=== PATIENT | male | born 1960 | race Caucasian/White ===

== ENCOUNTER → 2018-03-18 08:03 | Outpatient (CLI) | payer OTHER, SELFPAY ==
[2018-03-18 12:03] LABS: Cholesterol 174 mg/dL (200); Glucose 103 mg/dL (74-106); High Density Lipoprotein 38 mg/dL; Triglycerides 125 mg/dL; Very Low Density Lipoprotein 25 mg/dL (5-40)
== END ==
PROVIDERS: Family Provider Family Medicine; PCP Family Medicine; Visit Provider Family Medicine
DX: Z13.220 Encounter for screening for lipoid disorders (principal); Z13.1 Encounter for screening for diabetes mellitus
CPT/HCPCS: 36415; 80061; 82947

== ENCOUNTER → 2019-03-06 16:21 | Outpatient (CLI) | payer OTHER, SELFPAY ==
--- NOTE | 2019-03-06 15:10 | LES_PTH ---
PATIENT: SUNITA CERDA LOC: [facility] U#:[id number] AGE/SX: 64/M ROOM: RE03/06/[address]: Dr. Malachi Barrios MD : 1960 BED: DIS: SPEC #: [id number] RECD: 03/06/19 16:19 STATUS: HAIDER PRIMITIVO #: [id number] PHIL: 03/06/19 15:[address]: Malachi Barrios DEPT: SURGICAL PATHOLOGY RECD BY: Kin Chew ENTERED: 03/09/19 10:32 SP TYPE: Lesion OTHR DR: Dr. Simone Guallpa MD Tissues: A - Skin of forearm, NOS B - Skin of forearm, NOS C - Skin of forearm, NOS D - Skin of forearm, NOS Procedures: Surgery Specimen Level IV HEADER OPERATION: Excision of bilateral forearm subcutaneous lesions PRE-OP DIAGNOSIS: Lesion of subcutaneous tissue TISSUE SUBMITTED: A - Left proximal forearm lesion, B - Left distal forearm lesion, C - Right posterior forearm lesion, D - Right anterior forearm lesion MICROSCOPIC DIAGNOSIS A. Soft tissue lesion of left proximal forearm lesion, excision: Mature adipose tissue consistent with angiolipoma. B. Soft tissue lesion of left distal forearm, excision: Mature adipose tissue consistent with angiolipoma. C. Soft tissue lesion of right posterior forearm, excision: Mature adipose tissue consistent with angiolipoma. D. Soft tissue lesion of right anterior forearm, excision: Mature adipose tissue consistent with angiolipoma. AM:lucero 03/10/19 COMMENT Case has been reviewed in consultation with Dr. Langston who concurs with the above diagnosis. IDC:SJ MICROSCOPIC DESCRIPTION Slides are reviewed. GROSS DESCRIPTION A - Received in fixative is one container labeled with the patient's name and designated left proximal forearm. The specimen consists of a piece of yellow adipose tissue measuring 1.7 x 1 x 0.5 cm. The specimen is bisected and submitted entirely in one cassette. B - Received in fixative is one container labeled with the patient's name and designated left distal forearm. The specimen consists three pieces of yellow adipose tissue measuring 1.5 x 1 x 0.5 cm and 2.5 x 1.2 x 0.6 and 2 x 2 x 0.5 cm. Sections of these masses reveal painting whorled cut surfaces without areas of hemorrhage, necrosis or cystic degeneration. Roller Turner sections are submitted in two cassettes. Cassette 2 contains the largest piece. C - Received in fixative is one container labeled with the patient's name and designated right posterior forearm. The specimen consists two pieces of yellow adipose tissue measuring 2.5 x 1.5 x 1 cm and 1.2 x 1 x 0.5 cm. Sections of these masses reveal painting whorled cut surfaces without areas of hemorrhage, necrosis or cystic degeneration. Roller Turner sections are submitted in one cassette. D - Received in fixative is one container labeled with the patient's name and designated right inferior forearm. The specimen consists of an irregular piece of adipose tissue measuring 3 x 2.5 x 1 cm. The external surface is inked. Sections reveal yellow adipose cut surfaces without areas of hemorrhage, necrosis or cystic degeneration. Roller Turner sections are submitted in two cassettes. / LELE:lucero 03/09/19 TC:1 CPT: 08175 x4
[2019-03-06 16:23] VITALS: BMI 25.4
== END ==
PROVIDERS: Family Provider Family Medicine; PCP Family Medicine; Referring Provider Surgery; Visit Provider Surgery
DX: L98.9 Disorder of the skin and subcutaneous tissue, unspecified (principal)
CPT/HCPCS: 88305

== ENCOUNTER 2020-10-28 13:27 | Outpatient (RCR) | payer OTHER, SELFPAY ==
[2019-03-19 14:51] VITALS: BMI 25.4
== END 2021-01-10 23:59 ==
LOC: IMMUN 13:27
PROVIDERS: PCP Family Medicine; Visit Provider Family Medicine
DX: Z23 Encounter for immunization (principal)
CPT/HCPCS: 0001A; 0002A; 91300

== ENCOUNTER 2022-11-30 15:28 | Observation (INO) | payer OTHER, SELFPAY ==
[2022-11-30] VITALS (7 sets, daily range): BP systolic 123–146; BP diastolic 69–81; PULSE 69–83; RESP 13–20; TEMP 36.1–36.8; O2SAT 93–98; BMI 33.5; BMI 26.3
[2022-11-30] MEDS: Ondansetron 4 MG/2 ML Vial IV (16:01)
--- NOTE | 2022-11-30 16:05 | EKG12_ITS ---
Test Reason : SYNCOPE Blood Pressure : / mmHG Vent. Rate : 067 BPM Atrial Rate : 067 BPM P-R Int : 176 ms QRS Dur : 090 ms QT Int : 400 ms P-R-T Axes : 043 008 011 degrees QTc Int : 422 ms Normal sinus rhythm Normal ECG Confirmed by DELLA HERMOSILLO, JOANIE ([id number]), international editorial producer MARY LOU GALE ([id number]) on 12/03/2022 11:35:09 AM Referred By: Ramone Martinez Confirmed By:FRANNY HULL MD
--- NOTE | 2022-11-30 16:06 | EX.ED.DYSGE1 ---
HPI History of Present Illness Chief Complaint: Syncope Narrative Narrative: 62-year-old male presenting with syncopal episodes. He had 4 episodes today prior to evaluation. Patient had a syncopal episode in the ER and there was a CODE BLUE called. Patient awoke a little dazed but alert and oriented. He states that he had 1 episode of syncope today at home, [address] in the car and when which she had to puller over. He is unsure how long he was unconscious. His significant other is with him and states that he had nearly syncope while coming into the emergency room. Patient reports a history of vasovagal syncope which was diagnosed in 2000 by the [facility]. He states he had a classic tilt table test. He can tell you when it is about to come on he feels like there is a pressure pulling down from his epigastrium down to his stomach and if he sits down he will be fine but if he stands up or moves he will faint. Patient did not fall or hit his head today. Patient is having some epigastric burning/dyspepsia which started after eating long Aamir Latoya today. Other than the syncope he does not of a cardiac history. Patient does admit that he has been on metoprolol long-term and his it has controlled his syncopal episodes. He has not had a syncopal event in years. [facility] Medical History Back pain GERD (gastroesophageal reflux disease) HTN (hypertension) Migraine Syncope and collapse Home Medications glucosamine WVx-ajw-emxlivzcueg 500 mg-167 mg-400 mg tablet 1 tab PO DAILY 02/16/19 [History Last Taken Unknown] metoprolol tartrate 25 mg tablet 25 mg PO DAILY HTN 11/30/22 [History Last Taken Unknown] Allergy/AdvReac Type Severity Reaction Status Date / Time adhesive tape Allergy Mild blistering Verified 11/30/22 15:33 Iodinated Contrast Media AdvReac Mild GI upset Verified 11/30/22 15:33 [Iodinated Contrast- Oral and IV Dye] Family History Father Heart disease Myocardial infarction Mother Hypertension DVT (deep venous thrombosis) Surgical History History of appendectomy History of colonoscopy (~2010) Social History Smoking Status: Never smoker alcohol intake: current substance use type: does not use ROS ROS ED Constitutional Constitutional ED: Denies chills, fever(s) or sweats Eyes Eyes: Denies blurry vision or change in vision ENT ENT ED: Denies ear pain or sore throat Cardiovascular Cardiovascular: Reports other Details: Syncopal episodes x5 ; Denies chest pain, palpitations or racing heartbeat Respiratory/Chest Respiratory/Chest: Denies cough, dyspnea or sputum Gastrointestinal Gastrointestinal: Reports nausea, vomiting and other Details: Dyspepsia ; Denies abdominal pain, constipation or diarrhea Genitourinary Genitourinary ED: Denies dysuria, hematuria or urinary frequency Musculoskeletal Musculoskeletal: Denies arthralgias, myalgias or neck pain Integumentary Denies abscess, Abrasions or rash Neurologic Neurologic: Denies headache(s), paresthesias or weakness Psychiatric Psychiatric: Denies anxiety, depression, suicidal ideation or suicidal thoughts Endocrine Endocrinology: Denies polydipsia or polyuria EXAM Physical Exam Const Vital Signs: 11/30/22 15:29 11/30/22 16:03 11/30/22 16:18 Temperature 97 F L Temperature Source Temporal Pulse Rate 83 Respiratory Rate 18 Respiratory Effort Normal Non-Labored Respiratory Pattern Normal Blood Pressure 130/78 H Blood Pressure Mean 95 Pulse Ox 98 Oxygen Delivery Method Room Air Room Air 11/30/22 17:00 11/30/22 18:00 Temperature Temperature Source Pulse Rate 77 69 Respiratory Rate 13 20 H Respiratory Effort Respiratory Pattern Blood Pressure 146/69 H 145/75 H Blood Pressure Mean 94 98 Pulse Ox 93 97 Oxygen Delivery Method Room Air Room Air Positive well nourished General Appearance ED: NAD; Negative for pallor HEENT Reports moist mucous membranes Eyes PERRL and EOMs intact bilaterally Chest Wall inspection of chest normal and palpation of chest normal Resp normal respiratory effort and clear to auscultation bilaterally Auscultation: Negative for rales, rhonchi or wheezes Cardio regular rate and regular rhythm GI normal to inspection, nondistended, normoactive bowel sounds Extremity normal to inspection Neuro oriented x3 and CN's II-XII intact bilaterally Motor Exam: strength 5/5 throughout Psych mental status grossly normal Skin no rashes or lesions noted General Skin Exam: Negative for jaundice or pallor MDM MDM MDM Narrative Medical decision making narrative: Patient presenting with syncope. He does have a history of vasovagal syncope however its been since 2000 that he had an episode like this. He states that he is never had several episodes of syncope in a row. Today he had his fifth syncopal event in the ER. A CODE BLUE was called. Patient had a sinus pause on telemetry. I suspect the patient was vasovagal laying as he was having extreme nausea and vomiting. After given Zofran he has not had another event. Patient was having some dyspepsia as well. Differential includes vasovagal syncope, electrolyte abnormality, dehydration, ACS, pneumonia. EKG was performed and on my interpretation there is a normal sinus rhythm with a ventricular rate of 67 bpm without sign of ischemic change or ectopy. KS interval 176 ms, QRS 90 ms, QTc 422 ms. Chest x-ray my interpretation shows no acute cardiopulmonary process. Radiologist services and agrees. CBC and CMP are unremarkable. High-sensitivity troponin is 4. Discussed with the hospitalist for admission given the multiple syncopal episodes. She recommended that I speak with Dr. Leo regarding the syncope and presents because he did have a sinus pause. Dr. Leo states that he will talk to Dr. Grimm and then get back with me. Dr. Camarena stated that he felt comfortable keeping the patient here at the hospital. Discussed with the hospitalist for admission. Impression: 1. Nausea/vomiting 2. Syncope Lab Data Attestation: I reviewed the patient's lab results. Labs: Laboratory Results - last 24 hr 11/30/22 11/30/22 11/30/22 15:50 15:50 15:50 WBC 8.5 RBC 4.55 L Hgb 14.6 Hct 41.5 MCV 91.2 MCH 32.1 H MCHC 35.2 RDW Std Deviation 44.4 H RDW Coeff of Reanna 13.3 Plt Count 247 MPV 10.3 Immature Gran % (Auto) 0.400 Neut % (Auto) 51.2 Lymph % (Auto) 32.3 [place] % (Auto) 11.5 H Eos % (Auto) 3.9 Baso % (Auto) 0.7 Absolute Neuts (auto) 4.3 Absolute Lymphs (auto) 2.73 Nucleated RBC % 0 Sodium 138 Potassium 3.6 Chloride 109 H Carbon Dioxide 22.0 Anion Gap 7 BUN 18 Creatinine 1.14 Estim Creat Clear Calc 68.05 Est GFR (MDRD) Af Amer 84 Est GFR (MDRD) Non-Af 69 BUN/Creatinine Ratio 15.8 Glucose 119 H Calcium 8.7 Total Bilirubin 0.80 Direct Bilirubin 0.19 AST 20 ALT 25 Alkaline Phosphatase 43 L Troponin I High Sens 4 B-Natriuretic Peptide 23.3 Total Protein 6.8 Albumin 3.6 Globulin 3.2 Lipase 27 11/30/22 18:10 WBC RBC Hgb Hct MCV MCH MCHC RDW Std Deviation RDW Coeff of Reanna Plt Count MPV Immature Gran % (Auto) Neut % (Auto) Lymph % (Auto) [place] % (Auto) Eos % (Auto) Baso % (Auto) Absolute Neuts (auto) Absolute Lymphs (auto) Nucleated RBC % Sodium Potassium Chloride Carbon Dioxide Anion Gap BUN Creatinine Estim Creat Clear Calc Est GFR (MDRD) Af Amer Est GFR (MDRD) Non-Af BUN/Creatinine Ratio Glucose Calcium Total Bilirubin Direct Bilirubin AST ALT Alkaline Phosphatase Troponin I High Sens 4 B-Natriuretic Peptide Total Protein Albumin Globulin Lipase Radiography Diagnostic Testing: Clinical Impression(s) from Imaging Studies Chest X-Ray 11/30/22 16:20 IMPRESSION: Normal x-ray examination of the chest. Electronically Signed: Roger Cruz MD at 16:35 EDT , Discharge Plan Triage Chief Complaint: Syncope ED Provider: Carlos Callejas Dx/Rx/DC Orders Primary Care Provider: Ramone Carrera
[2022-11-30] MEDS: 0.9% Normal Saline 1,000 ML 1000 ML IV (16:18)
--- NOTE | 2022-11-30 16:20 | RAD_ITS ---
STUDY: X-RAY CHEST REASON FOR EXAM: Male, 62 years old. chest pain TECHNIQUE: Single AP portable view of the chest. COMPARISON: None. FINDINGS: The lungs are clear and expanded. There is no demonstrated pleural abnormality. Normal size heart. Normal mediastinum and azam. Normal visualized pulmonary arteries. Normal visualized aortic arch and descending thoracic aorta. Normal visualized thoracic spine. Normal visualized ribs, clavicles, and shoulders. There is no demonstrated abnormality of the visualized soft tissue structures of the upper abdomen. RAD/Chest 1 View (Portable) IMPRESSION: Normal x-ray examination of the chest. Electronically Signed: Roger Cruz MD at 16:35 EDT ,
[2022-11-30 16:40] LABS: AST(SGOT) 20 U/L (15-37); Alanine Aminotransfer ALT/SGPT 25 U/L (16-61); Albumin, Serum 3.6 g/dL (3.2-5.0); Alkaline Phosphatase 43 U/L (45-117); Anion Gap 7 (5-15); BUN 18 mg/dL (7-18); BUN/Creat Ratio 15.8 RATIO (10-20); Bilirubin, Direct 0.19 mg/dL (0.00-0.30); Calcium,Total 8.7 mg/dL (8.5-10.1); Chloride 109 mmol/L (98-107); Creatinine, Serum 1.14 mg/dL (0.70-1.30); EST Glomerular Filtration Rate 69 mL/min (>60); Est Glom Filt Rate - Afr Amer 84 mL/min (>60); Estimated Creatinine Clearance 68.05 ml/min; Globulin 3.2 g/dL (2.2-4.2); Glucose 119 mg/dL (74-106); Lipase 27 U/L (13-75); Potassium 3.6 mmol/L (3.5-5.1); Protein, Total 6.8 g/dL (6.4-8.2); Sodium Level 138 mmol/L (136-145); Troponin-I HS (w/2H Reflex) 4 pg/mL (3.0-78.0)
[2022-11-30 16:44] LABS: Absolute Lymphocyte Count 2.73 X10^3/uL (0.83-4.51); Absolute Neutrophil Count 4.3 X10^3/uL (2.0-7.7); Basophil# 0.06 X10^3/uL; Basophil% 0.7 % (0-1); Eosinophil# 0.33 X10^3/uL; Eosinophils% 3.9 % (0-5); Hematocrit 41.5 % (40-54); Hemoglobin 14.6 g/dL (13.0-16.5); Lymphocyte # 2.73 X10^3/ul (0.83-4.51); Lymphocyte % 32.3 % (19-41); Mean Corp Hgb Conc 35.2 g/dL (32-36); Mean Corpuscular Hgb 32.1 pg (27.0-32.0); Mean Corpuscular Volume 91.2 fL (80-94); Mean Platelet Vol. 10.3 fl (6.2-12.0); Monocyte# 0.97 X10^3/uL; Monocyte% 11.5 % (0-10); NRBC Flagged by Analyzer 0 % (0-5); Neutrophil # 4.34 X10^3/uL (2.7-7.7); Neutrophil % 51.2 % (47-70); Platelet Count 247 K/mm3 (150-450); RBC Distribution Width CV 13.3 % (11.6-14.6); RBC Distribution Width SD 44.4 fl (35.1-43.9); Red Blood Count 4.55 M/mm3 (4.6-6.2); White Blood Count 8.5 K/mm3 (4.4-11.0)
[2022-11-30 17:08] LABS: BNP,B-Type NATRIURETIC PEPTIDE 23.3 pg/mL (0-100)
[2022-11-30 18:18] LABS: Reflex Troponin-HS? (from REC) Y
--- NOTE | 2022-11-30 18:55 | PCM.HP.STD ---
HPI - General General Date of Admission: 11/30/22 Date of Service: 11/30/22 Chief Complaint: Syncope HPI Narrative SUNITA CERDA, is a 62 M who presented with recurrent syncopal episodes today. Patient has a documented history of vasovagal syncope that was diagnosed about 25 years ago at the [facility] with a significant positive tilt table test. Patient states he has not had an episode in 25 years and has prodromal symptoms that allow him to compensate for these episodes. Today he ate lunch at [employer] and developed some dyspepsia following. Since that point he has had 6 episodes of syncope with the longest episode lasting approximately 2 minutes per his . He had about 30 seconds of confusion post syncopal episode with each event. His last event here demonstrated asystole with a long pause on telemetry with return of sinus rhythm fairly quickly. At the time of my evaluation patient feels almost back to his baseline only complaining of some mild discomfort in the epigastric area. He was fine up until his first syncopal episode today which happened in the car and now feels fine again. He states he has had dyspepsia previously and had not had syncopal episode so he does not feel that there is a correlation between his dyspepsia and his syncopal episodes at this time. Vital signs at presentation demonstrated temperature of 97, heart rates 83, blood pressure 130/78, respiratory rate 18, oxygen saturation 98% on room air. CBC is unremarkable. Differential does show a monocytosis. Chemistry panel is unremarkable. Nonfasting glucose was 119. Liver functions are normal. Initial troponin was 4 and delta troponin was 4. BNP is 23.3. Lipase was 27. Chest x-ray is unremarkable. EKG shows normal sinus rhythm with normal intervals and no ST-T wave changes concerning for acute ischemia. [facility] Medical History Back pain GERD (gastroesophageal reflux disease) HTN (hypertension) Migraine Syncope and collapse Home Medications glucosamine MGk-cgs-yxazfznllom 500 mg-167 mg-400 mg tablet 1 tab PO DAILY 02/16/19 [History Last Taken Unknown] metoprolol tartrate 25 mg tablet 25 mg PO DAILY HTN 11/30/22 [History Last Taken Unknown] Allergy/AdvReac Type Severity Reaction Status Date / Time adhesive tape Allergy Mild blistering Verified 11/30/22 15:33 Iodinated Contrast Media AdvReac Mild GI upset Verified 11/30/22 15:33 [Iodinated Contrast- Oral and IV Dye] Family History Father Heart disease Myocardial infarction Mother Hypertension DVT (deep venous thrombosis) Surgical History History of appendectomy History of colonoscopy (~2010) Social History Smoking Status: Never smoker alcohol intake: current substance use type: does not use ROS Constitutional Constitutional: Denies anorexia, change in weight, chills, fatigue, fever(s), malaise, night sweats, weakness or other Eyes Eyes: Denies blurry vision, change in eye color, change in vision, discharge from eye(s), double vision, erythema, eye pain, loss of vision or other ENT HEENT: Denies abnormal hearing, dysphagia, ear pain, epistaxis, headache(s), hearing loss, nasal congestion, nasal discharge, post nasal drip, sinus pressure, sore throat or other Cardiovascular Cardiovascular: Reports syncope; Denies chest pain, claudication, dyspnea on exertion, edema, lightheadedness, orthopnea, palpitations, paroxysmal nocturnal dyspnea, rapid heart rate or other Respiratory/Chest Respiratory/Chest: Denies cough, dyspnea, excessive phlegm production, hemoptysis, productive cough, shortness of breath at rest, shortness of breath with exertion, wheezing or other Gastrointestinal Gastrointestinal: Reports dyspepsia and vomiting; Denies abdominal pain, coffee ground emesis, constipation, diarrhea, hematemesis, hematochezia, loose stools, melena, nausea or other Genitourinary Genitourinary: Denies burning urination, difficulty urinating, dysuria, hematuria, nocturia, urinary frequency, urinary hesitancy, urinary incontinence, urinary urgency or other Musculoskeletal Musculoskeletal: Denies arthralgias, back pain, joint pain, joint stiffness, joint swelling, myalgias, neck pain or other Neurologic Neurologic: Reports syncope; Denies abnormal gait, abnormal speech, confusion, disequilibrium, dizziness, focal weakness, headache(s), numbness, paresthesias, seizure-like activity, seizures, tingling, tremor(s) or other Psychiatric Psychiatric: Denies anxiety, depression, homicidal ideation, suicidal ideation or other Endocrine Endocrinology: Denies change in body appearance, cold intolerance, excessive sweating, heat intolerance, polydipsia, polyuria or other Hematologic/Lymphatic Hematologic/Lymphatic: Denies anemia, easy bleeding, easy bruising, lymphadenopathy or other Allergic/Immunologic Allergic/Immunologic: Denies rhinitis, hives, eczemia, asthma or other Vital Signs Vital Signs Vital Signs: 11/30/22 15:29 11/30/22 16:03 11/30/22 16:18 Temperature 97 F L Temperature Source Temporal Pulse Rate 83 Respiratory Rate 18 Respiratory Effort Normal Non-Labored Respiratory Pattern Normal Blood Pressure 130/78 H Blood Pressure Mean 95 Pulse Ox 98 Oxygen Delivery Method Room Air Room Air 11/30/22 17:00 11/30/22 18:00 Temperature Temperature Source Pulse Rate 77 69 Respiratory Rate 13 20 H Respiratory Effort Respiratory Pattern Blood Pressure 146/69 H 145/75 H Blood Pressure Mean 94 98 Pulse Ox 93 97 Oxygen Delivery Method Room Air Room Air Weight Weight: 103 kg Body Mass Index (BMI) 33.5 Physical Exam Const alert, oriented x3, no apparent distress, average body habitus, healthy appearing and well nourished Constitutional Narrative: Upper middle-aged white male sitting up in bed, at bedside, patient appears comfortable and nontoxic, states he is hungry and asking for something to eat General Appearance: cooperative HEENT normocephalic, head/scalp atraumatic, hearing grossly normal bilaterally and moist oral mucous membranes HEENT Narrative: Mallampati 2, no thrush, dentition is good for age Eyes PERRL, EOMs intact bilaterally and conjunctivae normal Eyes Narrative: No scleral icterus Neck no lymphadenopathy, supple, no JVD and no carotid bruits Neck Narrative: Trachea midline, no thyroid enlargement Resp normal respiratory effort, no retractions, no use of accessory muscles and clear to auscultation bilaterally Auscultation: Negative for rales, rhonchi or wheezes Cardio regular rate, regular rhythm, S1 normal heart sound, S2 normal heart sound, no murmurs, no rub, no gallops and no clicks GI normal to inspection, nondistended, normoactive bowel sounds, soft to palpation and non-tender Extremity no clubbing, cyanosis or edema Extremity Narrative: 2+ pedal pulses, 2+ radial pulses Skin no rashes or lesions noted, no wounds, skin turgor normal, no jaundice, no petechiae and no mottling Neuro oriented x3, CN's II-XII intact bilaterally, moves all extremities and no focal motor deficits Sensorium / Orientation: awake, alert, oriented to person, oriented to place and oriented to time Speech: speech normal Motor Exam: strength 5/5 throughout Psych affect normal Psych Narrative: Very pleasant, appropriately interactive Results Lab / Micro Data Result Diagrams: 11/30/22 15:50 11/30/22 15:50 Labs: Laboratory Results - last 24 hr 11/30/22 15:50: WBC 8.5, RBC 4.55 L, Hgb 14.6, Hct 41.5, MCV 91.2, MCH 32.1 H, MCHC 35.2, RDW Std Deviation 44.4 H, RDW Coeff of Reanna 13.3, Plt Count 247, MPV 10.3, Immature Gran % (Auto) 0.400, Neut % (Auto) 51.2, Lymph % (Auto) 32.3, [place] % (Auto) 11.5 H, Eos % (Auto) 3.9, Baso % (Auto) 0.7, Absolute Neuts (auto) 4.3, Absolute Lymphs (auto) 2.73, Nucleated RBC % 0 11/30/22 15:50: Sodium 138, Potassium 3.6, Chloride 109 H, Carbon Dioxide 22.0, Anion Gap 7, BUN 18, Creatinine 1.14, Estim Creat Clear Calc 68.05, Est GFR (MDRD) Af Amer 84, Est GFR (MDRD) Non-Af 69, BUN/Creatinine Ratio 15.8, Glucose 119 H, Calcium 8.7, Total Bilirubin 0.80, Direct Bilirubin 0.19, AST 20, ALT 25, Alkaline Phosphatase 43 L, Troponin I High Sens 4, Total Protein 6.8, Albumin 3.6, Globulin 3.2, Lipase 27 11/30/22 15:50: B-Natriuretic Peptide 23.3 Radiology Impression Chest X-Ray 11/30/22 16:20 IMPRESSION: Normal x-ray examination of the chest. Electronically Signed: Roger Cruz MD at 16:35 EDT , Assessment & Plan Assessment/Plan (1) Syncope: PLAN: Plan Syncope -Patient with 6 episodes of syncope today -Has history of vasovagal syncope diagnosed 25 years ago but has not had an event that has caused a syncopal episode in 25 years since he was diagnosed -He does have prodrome -Monitor on telemetry -Cycle cardiac enzymes -Check stress test -Check echocardiogram -Check carotid Dopplers -Consult cardiology -If work-up here is negative will likely need event monitor at discharge Dyspepsia -Protonix 40 mg daily Hypertension -Continue home metoprolol History of vasovagal syncope -Remote diagnosis 25 years ago at [facility] -Had a markedly positive tilt table at that time but has prodrome and can usually lilly syncope with maneuvers he was instructed to utilize Osteoporosis -Restart glucosamine/chondroitin after discharge DVT prophylaxis -Lovenox CODE STATUS -Full code Charges/Coding Visit Charges Inpatient E&M: 83605 Init Hosp L2
[2022-11-30 19:02] LABS: Troponin-I HS 4 pg/mL (3.0-78.0)
--- NOTE | 2022-11-30 19:51 | ECHOD_ITS ---
Reason For Study: SYNCOPE Procedure This was a 2D Doppler, Color Flow transthoracic echocardiogram. Exam performed portable in patient room. Left Ventricle Normal LV size. The estimated ejection fraction is 60 %. Normal diastology for age. No regional wall motion abnormalities noted. Right Ventricle Normal RV size. Normal systolic function. Atria Normal left atrium. Normal right atrium. No doppler evidence for ASD. Bubble contrast study negative for right to left interatrial shunt. Mitral Valve There is no mitral valve stenosis. Moderate (2+) mitral valve insufficiency. Tricuspid Valve There is no tricuspid stenosis. Trivial tricuspid valve insufficiency. Pulmonary artery systolic pressure is 35-40 mmHg. Aortic Valve Trisinus/trileaflet aortic valve. There is no aortic stenosis. No aortic valve insufficiency. Pulmonic Valve There is no pulmonic valvular stenosis. No pulmonic valve insufficiency. Great Vessels Normal aortic root. Pericardium/Pleural No pericardial effusion. Medication Performed a rapid injection of agitated mix of 9 cc saline and 1cc air to assess for atrial septal defect. MMode/2D Measurements & Calculations Ao root diam: 3.9 cm LAV(MOD-bp): 65.2 ml LVAd ap4: 28.9 cm2 LAV(MOD-bp) Indexed: 29.9 ml/m2 LVLd ap4: 9.4 cm LAV(MOD-sp2): 66.9 ml EDV(MOD-sp4): 74.3 ml LAV(MOD-sp4): 59.8 ml EDV(sp4-el): 75.9 ml LVAs ap4: 16.4 cm2 LVLs ap4: 7.8 cm ESV(MOD-sp4): 30.2 ml ESV(sp4-el): 29.4 ml EF(MOD-sp4): 59.3 % EF(sp4-el): 61.2 % SV(MOD-sp4): 44.0 ml SV(sp4-el): 46.4 ml LA A4 area: 21.2 cm2 RA A4 area: 17.9 cm2 Time Measurements MV dec time: 0.19 sec Doppler Measurements & Calculations MV E max alexander: 95.0 cm/sec Lat Peak E' Alexander: 13.4 cm/sec Med Peak E' Alexander: 9.7 cm/sec MV A max alexander: 68.6 cm/sec E/E' lat: 7.1 E/E' med: 9.8 MV E/A: 1.4 MV V2 max: 97.3 cm/sec MV dec slope: 494.5 cm/sec2 Ao V2 max: 119.4 cm/sec MV max P.8 mmHg Ao max P.7 mmHg MV V2 mean: 61.3 cm/sec Ao V2 mean: 83.1 cm/sec MV mean P.7 mmHg Ao mean P.1 mmHg MV V2 VTI: 36.1 cm Ao V2 VTI: 29.6 cm AV (velocity ratio): 0.77 LV V1 max: 95.4 cm/sec PA V2 max: 55.7 cm/sec TR max alexander: 278.0 cm/sec LV V1 max P.7 mmHg PA V2 mean: 41.5 cm/sec TR max P.9 mmHg LV V1 mean P.0 mmHg LV V1 mean: 66.5 cm/sec LV V1 VTI: 22.7 cm ECHO/Echo Complete Interpretation Summary The estimated ejection fraction is 60 %. Moderate (2+) mitral valve insufficiency. Ordering Physician: Blanca Alves Referring Physician: Ramone Carrera Performed By: Colleen Monroe RCS
[2022-11-30] MEDS: Pantoprazole Sodium 40 MG Tablet PO (23:17)
[2022-12-01 00:26] LABS: Troponin-I HS 4 pg/mL (3.0-78.0)
[2022-12-01 04:33] VITALS: BP 125/76; PULSE 68; RESP 18; TEMP 36.6; O2SAT 96
[2022-12-01 04:34] VITALS: BP 125/76; BP 126/82; BP 127/90; PULSE 66; PULSE 71; PULSE 86
[2022-12-01 05:48] VITALS: BMI 26.3
[2022-12-01 07:59] VITALS: BP 139/85; PULSE 67; RESP 16; TEMP 36.1; O2SAT 98
[2022-12-01] MEDS: 0.9% Saline Lock 10 ML Syringe IV (08:11)
[2022-12-01 08:50] LABS: Magnesium 2.2 mg/dL (1.6-2.6); Thyroid Stim Hormone (TSH) 1.28 uIU/mL (0.358-3.74)
--- NOTE | 2022-12-01 10:21 | PCM.PN.HOSP ---
Reason for Visit Reason for Visit: Diagnoses Syncope and collapse (11/30/22) Subjective Subjective Patient was seen and examined today, he has had no episodes of syncope since he was admitted to the floor. Patient has not had any episodes of bradycardia either. I spent quite a bit of time talking with the patient's and patient, the states that the patient has been on metoprolol for approximately 25 years, she would be reluctant to have this medicine stopped. I conveyed this to cardiology today. I have canceled the patient's carotid duplex studies, I do not feel he needs the studies and they do not do them on the weekends here at the hospital. At the time of this dictation, patient is scheduled for an echocardiogram and a stress test today. I let the patient's and the patient know that he might be discharged with a 30-day event monitor prescription. Objective Data Objective Data Vital Signs: Vital Signs Temp Pulse Resp BP Pulse Ox O2 Del Method 97.0 F L 67 16 139/85 H 98 Room Air 12/01/22 07:59 12/01/22 07:59 12/01/22 07:59 12/01/22 07:59 12/01/22 07:59 12/01/22 08:53 Oxygen Delivery Method Room Air Weight: 103.3 kg Body Mass Index (BMI) 26.3 Intake & Output: Intake and Output for Last 24 Hours 11/29/22 11/30/22 12/01/22 23:59 23:59 23:59 Intake Total 1250 / 1250 0 / 0 Output Total 650 / 650 Balance 1250 / 1250 -650 / -650 Lab / Micro Data Result Diagrams: 11/30/22 15:50 11/30/22 15:50 Labs: Laboratory Results - last 24 hr 11/30/22 15:50: WBC 8.5, RBC 4.55 L, Hgb 14.6, Hct 41.5, MCV 91.2, MCH 32.1 H, MCHC 35.2, RDW Std Deviation 44.4 H, RDW Coeff of Reanna 13.3, Plt Count 247, MPV 10.3, Immature Gran % (Auto) 0.400, Neut % (Auto) 51.2, Lymph % (Auto) 32.3, Andrew % (Auto) 11.5 H, Eos % (Auto) 3.9, Baso % (Auto) 0.7, Absolute Neuts (auto) 4.3, Absolute Lymphs (auto) 2.73, Nucleated RBC % 0 11/30/22 15:50: Sodium 138, Potassium 3.6, Chloride 109 H, Carbon Dioxide 22.0, Anion Gap 7, BUN 18, Creatinine 1.14, Estim Creat Clear Calc 68.05, Est GFR (MDRD) Af Amer 84, Est GFR (MDRD) Non-Af 69, BUN/Creatinine Ratio 15.8, Glucose 119 H, Calcium 8.7, Total Bilirubin 0.80, Direct Bilirubin 0.19, AST 20, ALT 25, Alkaline Phosphatase 43 L, Troponin I High Sens 4, Total Protein 6.8, Albumin 3.6, Globulin 3.2, Lipase 27 11/30/22 15:50: B-Natriuretic Peptide 23.3 11/30/22 18:10: Troponin I High Sens 4 12/01/22 00:00: Troponin I High Sens 4 12/01/22 07:20: Phosphorus 3.0, Magnesium 2.2, TSH 1.28 Radiography Diagnostic Testing: Radiology Impression Chest X-Ray 11/30/22 16:20 IMPRESSION: Normal x-ray examination of the chest. Electronically Signed: Roger Cruz MD at 16:35 EDT , Physical Exam Const alert, oriented x3, no apparent distress, average body habitus and healthy appearing General Appearance: cooperative, well kempt and well developed Orientation / Consciousness: awake, oriented to person, oriented to place and oriented to time HEENT normocephalic and moist oral mucous membranes Eyes PERRL, EOMs intact bilaterally and conjunctivae normal Neck supple, no JVD, thyroid normal and no carotid bruits General: trachea midline Resp normal respiratory effort, no retractions, no use of accessory muscles and clear to auscultation bilaterally Auscultation: Negative for rales, rhonchi or wheezes Cardio regular rate, regular rhythm, S1 normal heart sound, S2 normal heart sound, no murmurs, no rub and no gallops GI normal to inspection, nondistended, normoactive bowel sounds, soft to palpation, non-tender and non-distended Extremity no clubbing, cyanosis or edema Skin no rashes or lesions noted General Skin Exam: no breakdown Neuro oriented x3, CN's II-XII intact bilaterally, moves all extremities, no focal motor deficits and no sensory deficits noted Sensorium / Orientation: awake, alert, oriented to person, oriented to place and oriented to time Speech: speech normal Psych affect normal Assessment & Plan Assessment/Plan (1) Syncope: PLAN: Plan 1. Syncope-probably secondary to bradycardia, etiology of the bradycardia is unknown at this time, possibilities include vasovagal. Patient will continue to be monitored, he will have a stress test and echocardiogram performed today #2 sinus pause-exact etiology unclear, it is possible patient could have been nauseated causing sinus pause and syncope, again cardiology will see the patient in consultation today, he will have an echocardiogram and a stress test. Total clinical time spent by myself addressing the patient's medical issues, reviewing all of his data, and talking with the patient's care team: 26 minutes Charges/Coding Visit Charges Inpatient E&M: 26315 Subs Hosp L1
--- NOTE | 2022-12-01 12:40 | CASEMGMT ---
JULEE CM: Face to face with pt and family at bedside. Pt provided permission to discuss dc planning with visitors present. Pt denies any discharge needs at this time and states family will be available to assist as needed. Jayden Ge RN CM
[2022-12-01 12:52] VITALS: BP 136/77; PULSE 82; RESP 16; TEMP 36.2; O2SAT 96
[2022-12-01 12:56] VITALS: PULSE 82
[2022-12-01] MEDS: Metoprolol(XL)Succ 25 MG Tablet PO (12:56)
--- NOTE | 2022-12-01 16:05 | CON.PCM.CA_ITS ---
Assessment & Plan Assessment/Plan (1) Syncope: PLAN: Appears to be vasovagal. 2D echo was done today and was reviewed. Discussed treatment options, precautions to be taken etc. with the patient. His syncopal episodes appear to be precipitated by his dyspepsia. Patient did have prodromal symptoms prior to the episodes. He was advised to lie down flat if he has those prodromal symptoms. He was advised to get in touch with our office or come to the emergency room if he has recurrence of his symptoms. At this time I feel it is reasonable for the patient to be discharged home with an event monitor if possible. He needs to follow-up with cardiology service as an outpatient. Stress test could be considered as an outpatient. HPI Consult Data Date of Consult: 12/01/22 HPI Narrative Reason for Consultation: syncope HPI Narrative: SUNITA CERDA, is a 62 M who presents with several episodes of syncope that occurred yesterday. Patient has history of vasovagal syncope that was diagnosed about 20 years back. He had a positive tilt table test where he had significant sinus pause during the past around that time. He has been on metoprolol since then. He has not had any syncopal episodes for over 18 years. Yesterday he had some food that caused an upset stomach and subsequently he had about 3 episodes of syncope prior to coming to the hospital. When he was walking to the ER he had an episode of syncope and then after he was hooked up to the monitor he had an episode which revealed long sinus pause. Patient was having nausea around this time. He was given Zofran and his nausea and upset stomach resolved. He has not had any further episodes of bradycardia or sinus pauses overnight. He has remained asymptomatic overnight. His syncopal episodes this time felt like his prior vasovagal syncope. He denies any anginal symptoms. He exercises regularly at [employer]. Review of systems: All systems reviewed. All else is negative except that in [facility] Medical History (Updated 12/01/22 @ 12:[address] Ramone Martinez, ) Back pain GERD (gastroesophageal reflux disease) Migraine Syncope and collapse Home Medications glucosamine HLm-tcz-xmhnfhgwjze 500 mg-167 mg-400 mg tablet 1 tab PO DAILY 02/16/19 [History Last Taken Unknown] metoprolol tartrate 25 mg tablet 25 mg PO DAILY HTN 11/30/22 [History Last Taken Unknown] Allergy/AdvReac Type Severity Reaction Status Date / Time adhesive tape Allergy Mild blistering Verified 11/30/22 15:33 Iodinated Contrast Media AdvReac Mild GI upset Verified 11/30/22 15:33 [Iodinated Contrast- Oral and IV Dye] Family History Father Heart disease Myocardial infarction Mother Hypertension DVT (deep venous thrombosis) Surgical History History of appendectomy History of colonoscopy (~2010) Social History Smoking Status: Never smoker alcohol intake: current substance use type: does not use Physical Exam Const alert and oriented x3 HEENT normocephalic Eyes no scleral icterus Resp normal respiratory effort Cardio regular rate and regular rhythm Psych mental status grossly normal Risk Stratification Risk Stratification Applicable: No Charges/Coding Visit Charges Inpatient E&M: 38455 Init Hosp L2 Objective Data Vital Signs: Vital Signs Temp Pulse Resp BP Pulse Ox O2 Del Method 97.2 F L 82 16 136/77 H 96 Room Air 12/01/22 12:52 12/01/22 12:56 12/01/22 12:52 12/01/22 12:52 12/01/22 12:52 12/01/22 12:52 Oxygen Delivery Method Room Air Weight: 227 lb 11.8 oz Body Mass Index (BMI) 26.3 Intake & Output: Intake and Output for Last 24 Hours 11/29/22 11/30/22 12/01/22 23:59 23:59 23:59 Intake Total 1250 / 1250 240 / 240 Output Total 650 / 650 Balance 1250 / 1250 -410 / -410 Lab / Micro Data Result Diagrams: 11/30/22 15:50 11/30/22 15:50 Labs: Laboratory Results - last 24 hr 11/30/22 15:50: WBC 8.5, RBC 4.55 L, Hgb 14.6, Hct 41.5, MCV 91.2, MCH 32.1 H, MCHC 35.2, RDW Std Deviation 44.4 H, RDW Coeff of Reanna 13.3, Plt Count 247, MPV 10.3, Immature Gran % (Auto) 0.400, Neut % (Auto) 51.2, Lymph % (Auto) 32.3, [place] % (Auto) 11.5 H, Eos % (Auto) 3.9, Baso % (Auto) 0.7, Absolute Neuts (auto) 4.3, Absolute Lymphs (auto) 2.73, Nucleated RBC % 0 11/30/22 15:50: Sodium 138, Potassium 3.6, Chloride 109 H, Carbon Dioxide 22.0, Anion Gap 7, BUN 18, Creatinine 1.14, Estim Creat Clear Calc 68.05, Est GFR (MDRD) Af Amer 84, Est GFR (MDRD) Non-Af 69, BUN/Creatinine Ratio 15.8, Glucose 119 H, Calcium 8.7, Total Bilirubin 0.80, Direct Bilirubin 0.19, AST 20, ALT 25, Alkaline Phosphatase 43 L, Troponin I High Sens 4, Total Protein 6.8, Albumin 3.6, Globulin 3.2, Lipase 27 11/30/22 15:50: B-Natriuretic Peptide 23.3 11/30/22 18:10: Troponin I High Sens 4 12/01/22 00:00: Troponin I High Sens 4 12/01/22 07:20: Phosphorus 3.0, Magnesium 2.2, TSH 1.28 Cardiology Labs/Tests 11/30/22 15:50: WBC 8.5, RBC 4.55 L, Hgb 14.6, Hct 41.5, MCV 91.2, MCH 32.1 H, MCHC 35.2, Plt Count 247, MPV 10.3, Immature Gran % (Auto) 0.400, Neut % (Auto) 51.2, Lymph % (Auto) 32.3, [place] % (Auto) 11.5 H, Eos % (Auto) 3.9, Baso % (Auto) 0.7, Absolute Neuts (auto) 4.3, Nucleated RBC % 0 11/30/22 15:50: Sodium 138, Potassium 3.6, Chloride 109 H, Carbon Dioxide 22.0, Anion Gap 7, BUN 18, Creatinine 1.14, Est GFR (MDRD) Af Amer 84, Est GFR (MDRD) Non-Af 69, BUN/Creatinine Ratio 15.8, Glucose 119 H, Calcium 8.7, Total Bilirubin 0.80, Direct Bilirubin 0.19 11/30/22 15:50: B-Natriuretic Peptide 23.3 12/01/22 07:20: Phosphorus 3.0, Magnesium 2.2 Rhythm: EKG: ECHO: Stress Test: Cardiac Cath: PCI: CT Surgery: Holter monitor: EPS: PPM: CXR: Chest CT Scan: Radiography Diagnostic Testing: Radiology Impression Chest X-Ray 11/30/22 16:20 IMPRESSION: Normal x-ray examination of the chest. Electronically Signed: Roger Cruz MD at 16:35 EDT , Echocardiogram 11/30/22 19:51 Interpretation Summary The estimated ejection fraction is 60 %. Moderate (2+) mitral valve insufficiency. Ordering Physician: Blanca Alves Referring Physician: Ramone Carrera Performed By: Colleen Monroe RCS
--- NOTE | 2022-12-10 07:35 | PCM.DC.SUM ---
Providers Date of Admission: 11/30/22 Date of Discharge: 12/31/22 Primary Care Physician: Dr. Ramone Carrera, DO Consultations 11/30/22 19:51 Consult: Cardiology Routine Consulting Provider: Roland Leo Reason for Consult: Recurrent Syncope EMERGENT Consult: No MD Notified: Yes Date Notified: 11/30/22 Time Notified: 19:02 Method of Notification: ED Physician Initiated Reason For Visit: RECURRENT SYNCOPE Diagnosis Discharge Diagnosis (1) Syncope: Status: Resolved Code(s): R55 - Syncope and collapse Plan 1. Syncope-vasovagal in nature. #2 sinus pause-exact etiology unclear, it is possible patient could have been nauseated causing sinus pause and syncope, again cardiology will see the patient in consultation today, he will have an echocardiogram and a stress test. Total clinical time spent by myself addressing the patient's medical issues, reviewing all of his data, and talking with the patient's care team: 26 minutes Medications at Discharge Home Medications glucosamine OHl-cvu-bepkisxcgbp 500 mg-167 mg-400 mg tablet 1 tab PO DAILY 02/16/19 metoprolol tartrate 25 mg tablet 25 mg PO DAILY HTN 11/30/22 Hospital Course Operations None Procedures 2-D Echocardiogram and Stress test Summary of Care Provided Minutes Spent on Discharge: 31 Hospital Course: 62-year-old white male was seen in the emergency room at [facility] with several syncopal episodes. Patient actually had an episode in the emergency room also and there was a CODE BLUE called due to a sinus pause on telemetry, and then canceled. Patient stated he had 1 episode of syncope at home, [address] to the emergency room in the car also. Patient was unsure how long he was unconscious. Patient reports a history of vasovagal syncope which was diagnosed in 2000 and he takes metoprolol. Work-up in the emergency room included labs was unremarkable. Patient was placed into observation status on PCU, an echocardiogram was performed which was unremarkable except for mild pulmonary hypertension and moderate mitral valve insufficiency, patient also underwent nuclear stress test that was negative for reversible ischemia. Patient was monitored on telemetry, he had no other episodes of syncope while hospitalized and there were no periods of sinus pauses noted. Patient was seen by cardiology felt that the patient's syncope was likely vasovagal in nature. On 12/01/2022, patient was seen and examined: On examination he appeared in good health and spirits. Vital signs as documented. Skin warm and dry and without overt rashes. Neck without JVD, neck was supple, trachea midline, thyroid was normal. Lungs clear bilaterally, normal air movement was noted. Heart exam notable for regular rhythm, normal sounds and absence of murmurs, rubs or gallops. Abdomen unremarkable and without evidence of organomegaly, masses, or abdominal aortic enlargement. Bowel sounds are present, abdomen is not distended. Extremities nonedematous, no cyanosis was noted, no clubbing was noted. Neuro: Cranial nerves II through XII are grossly intact, no focal motor deficits were noted, sensation to light touch and pinprick intact, motor exam 5/5 throughout. Psych: Patient is alert and oriented x3, he does not appear anxious or depressed, he does not appear agitated. Patient appears stable for discharge home on 12/01/2022. Weight / BMI Weight Weight: 103.3 kg Body Mass Index (BMI) 26.3 ABG / Lab / Microbiology Data Result Diagrams: 11/30/22 15:50 11/30/22 15:50 Meaningful Use Info Meaningful Use Diagnoses (Choose all that apply): None applicable Discharge Plan Admission Admit Date/Time: 11/30/22 18:56 Primary Reason for Your Visit: Recurrent Syncope Attending Provider: Ramone Martinez Primary Care Provider: Ramone Carrera Consulting Providers: Roland Leo ; Blanca Alves Discharge Orders/Prescriptions Prescriptions: Continued glucosamine KWp-ehj-ultcjjkhwbl 500 mg-167 mg-400 mg tablet 500-167-400 mg tablet 1 tab PO DAILY metoprolol tartrate 25 mg tablet 25 mg PO DAILY Other Ambulatory Orders: 30 Day Event Recorder Preventi (Urgent) Timeframe: 1 Day Facility: [facility] - Location: Cardiovascular Services Ordered By: Dr. Blanca Alves Referrals / Follow Up: Elias Grimm MD [Med Staff - Active Staff] - Within 1 Month Ramone Carrera DO [Primary Care Provider] - Simone Guallpa MD [Non-Staff] - Within 1 Week Disposition Disposition (needs filled in before D/C Order can be placed): Home, Self Care Charges/Coding Visit Charges Inpatient E&M: 17771 Disch Hosp >30min
== END 2022-12-01 16:16 | disposition home or self-care (01) ==
LOC: ED 16:25 → PCU 12-01 01:51
PROVIDERS: Admitting Provider Internal Medicine; Emergency Provider Student in an Organized Health Care Education/Training Program; PCP Family Medicine; Referring Provider Internal Medicine; Visit Provider Internal Medicine
DX: R55 Syncope and collapse (principal); I27.20 Pulmonary hypertension, unspecified; R11.2 Nausea with vomiting, unspecified; D72.821 Monocytosis (symptomatic); I10 Essential (primary) hypertension; K21.9 Gastro-esophageal reflux disease without esophagitis; Z79.899 Other long term (current) drug therapy; I08.1 Rheumatic disorders of both mitral and tricuspid valves
CPT/HCPCS: 36415; 71045; 80048; 80076; 83690; 83735; 83880; 84100; 84443; 84484; 85025; 93005; 93306; 94668; 96361; 96374; 99221; 99285; Q9957; A4216; G0378; J2405

== ENCOUNTER → 2023-01-04 | Outpatient (CLI) | payer OTHER, SELFPAY ==
[2023-01-04 15:50] LABS: PSA,Total - Annual Screen 1.75 ng/mL (0.00-4.00)
== END | disposition home or self-care (01) ==
LOC: BFHLAB 13:18
PROVIDERS: PCP Family Medicine; Referring Provider Family Medicine; Visit Provider Family Medicine
DX: Z12.5 Encounter for screening for malignant neoplasm of prostate (principal)
CPT/HCPCS: 36415; 84153; G0103

== ENCOUNTER → 2023-01-18 | Outpatient (CLI) | payer OTHER, SELFPAY ==
--- NOTE | 2023-01-18 10:17 | STRESSREP_ITS ---
Stress Test Report Exercise myocardial perfusion stress test. 62-year-old man with a history of syncope Stress protocol: Resting EKG demonstrates normal sinus rhythm with a rate of 60 bpm resting blood pressure is 138/78 mmHg. The patient exercised according to the regular Pepito protocol for a total duration of 10 minutes and 30 seconds attaining a maximum h eart rate of 148 bpm which was 93% of maximum predicted heart rate; the maximum workload was 13.4 metabolic equivalents. At rest there were no ST or T wave changes noted to suggest ischemia and at peak exercise upsloping ST changes only were noted which did not meet the criteria for ischemia. No clinical angina was noted the test was terminated due to the target heart rate being achieved/fatigue. The peak blood pressure was 160/78 mmHg. Rate-pressure product was 23,600. Myocardial perfusion protocol. 14.6 mCi of technetium 99m sestamibi was injected at rest. The patient exercised according to regular Pepito protocol for total duration of 10 minutes and 30 seconds and at peak exercise 44 point mCi of technetium 99m sestamibi was injected stress images were obtained stress and rest images were reconstructed in comparing the short axis vertical long and horizontal long axis. Gated images were also obtained. Perfusion SPECT analysis: Review of the stress images demonstrate normal uptake of tracer noted in all areas of the myocardium. The resting images similarly demonstrate normal uptake of tracer noted in all areas of the myocardium. No areas of reversibility are noted to suggest ischemia no previous infarct was noted. Gated SPECT analysis: The gated ejection fraction is 72%. Conclusion: Normal exercise myocardial perfusion stress test at a high workload Preserved ejection fraction.
== END | disposition home or self-care (01) ==
LOC: CVS 07:01
PROVIDERS: PCP Nurse Practitioner Family; Referring Provider Physician Assistant Medical; Visit Provider Physician Assistant Medical
DX: R55 Syncope and collapse (principal)
CPT/HCPCS: 78452; 93017; A9500; A4216

== ENCOUNTER 2023-01-28 06:50 | Day surgery (SDC) | payer OTHER, SELFPAY ==
[2023-01-25 08:36] VITALS: BMI 26.6
[2023-01-28 07:23] LABS: Anion Gap 4 (5-15); BUN 16 mg/dL (7-18); BUN/Creat Ratio 13.9 RATIO (10-20); Calcium,Total 8.7 mg/dL (8.5-10.1); Chloride 107 mmol/L (98-107); Creatinine, Serum 1.15 mg/dL (0.70-1.30); EST Glomerular Filtration Rate 69 mL/min (>60); Est Glom Filt Rate - Afr Amer 83 mL/min (>60); Estimated Creatinine Clearance 87.21 ml/min; Glucose 127 mg/dL (74-106); Potassium 4.2 mmol/L (3.5-5.1); Sodium Level 139 mmol/L (136-145)
--- NOTE | 2023-01-28 10:33 | CL.IE_ITS ---
Patient: SUNITA CERDA Study Date: 01/28/2023 Performing: Elias Grimm MD : 1960 Age: 62 Gender: male PROCEDURES PERFORMED LP01-(14359)INSERTION OF LOOP RECORDER INDICATIONS Syncope PROCEDURE DETAILS The patient was brought to the Catheterization Lab in the postabsorptive nonsedated state. Informed consent was obtained prior to the procedure. Local anesthetic was given subcutaneously to the left upper chest area with Lidocaine 2%. Incision was made to the left upper chest. ICM Loop Recorder was inserted. The patient tolerated the procedure well. Estimated Blood Loss: 2 ml's IMPLANTED / EX-PLANTED DEVICES IMPLANTED DEVICE(S): ICM Loop Recorder - Attending Urologist: [employer], Model #[id number] , Serial # [id number] DEVICE PARAMETERS CONCLUSIONS / RECOMMENDATIONS Device Conclusions: Successful implantation of a patient activated loop recorder. PROCEDURE MEDICATIONS Versed 1 mg IV Oxygen: 2 L/min via nasal cannula Antibiotic given in appropriate timeframe. Ancef 2 Gm IV @ 01/28/2023 07:56:52 Signed By Elias Grimm MD On 01/28/2023 10:32:58 Elias Grimm MD
== END 2023-01-28 09:30 | disposition home or self-care (01) ==
LOC: CLSP 06:52
PROVIDERS: PCP Nurse Practitioner Family; Referring Provider Internal Medicine Cardiovascular Disease; Visit Provider Internal Medicine Cardiovascular Disease
DX: R55 Syncope and collapse (principal); K21.9 Gastro-esophageal reflux disease without esophagitis; Z79.899 Other long term (current) drug therapy
CPT/HCPCS: 33285; 36415; 80048; 99152; 99153; J7040

== ENCOUNTER 2023-01-30 10:51 | Day surgery (SDC) | payer OTHER, SELFPAY ==
[2023-01-30 11:13] VITALS: BMI 25.9
== END 2023-01-30 13:47 | disposition home or self-care (01) ==
LOC: CLSP 10:54
PROVIDERS: PCP Nurse Practitioner Family; Referring Provider Internal Medicine Cardiovascular Disease; Visit Provider Internal Medicine Cardiovascular Disease
DX: R55 Syncope and collapse (principal); I10 Essential (primary) hypertension; Z79.899 Other long term (current) drug therapy
CPT/HCPCS: 33286; 99152; J7040

== ENCOUNTER → 2023-03-04 | Day surgery (SDC) | payer OTHER, SELFPAY ==
--- NOTE | 2023-02-21 14:46 | HP.PCM_ITS ---
History and Physical Date of Admission: 03/04/23 Efe Arenas is a 62 year old who presents to the cardiac labor custodian today for placement of a loop recorder. Patient was admitted to the hospital for synocpe on 11/30/2022 and discharged home the following day. Patient does have a history of vasovagal syncope that was approximately 20 years ago. At that time, he did have a positive tilt test in which he had significant sinus pauses. He has been on metoprolol since then. Cardiology was consulted. He did have an echocardiogram done which demonstrated an ejection fraction of 60% with moderate mitral valve insufficiency. A 30-day event monitor was ordered on an outpatient basis. It was also recommended that he undergo a stress test on an outpatient basis. Patient notes that on the day that he was admitted to the hospital he had several syncopal episodes prior to coming in. He feels that he had approximately 5 syncopal episodes. He was lightheaded dizzy and diaphoretic prior to the syncopal episodes. He has not had any since that time. There was some concern that it could be vasovagal related with since he does have a history of this. As of now his 30-day event monitor has not demonstrated anything significant. He does not have any chest pain. He does not have any worsening shortness of breath. He does not have any palpitations. He has not had any further lightheadedness or dizziness. Intake Vital Signs See EMR Allergies See EMR Medications See EMR [facility] Medical History Back pain GERD (gastroesophageal reflux disease) Migraine Syncope and collapse Surgical History History of appendectomy History of colonoscopy (~2010) Family History Father Heart disease Myocardial infarctionMother Hypertension DVT (deep venous thrombosis) Social History Smoking Status: Never smoker alcohol intake: current substance use type: does not use ROS Const Const: Negative for fatigue, weakness, headache(s), frequent falls, excessive sweating, weight gain or weight loss Eyes Eyes: Negative for blind spots, loss of peripheral vision, transient loss of vision, blurry vision, change in vision or double vision ENT ENT: Negative for headache(s), dizziness, tinnitus, Nosebleed/epistaxis or balance problems Cardio Chest Pain: No Palpitations: No Edema: None Muscle aches with walking: None Resp Respiratory: Negative for SOB with activity, SOB at rest, SOB orthopnea\SOB lying down or Cough GI GI: Negative nausea, vomiting, heartburn, bloating, vomiting blood/hematemesis, bright, red blood in stools or black,tarry stools : Negative for hematuria Musc Musc: Negative for muscle aches/ myalgia, muscle weakness, joint pain or balance problems Skin Skin: Negative rash or wounds Neuro Neuro: Positive for syncope; Negative for dizziness, lightheadedness, near syncope, orthostatic symptoms, frequent falls, headache(s), weakness, confusion, memory loss, restless legs, blurry vision or double vision Nathan Hematologic/Lymphatic: Negative for easy bleeding or easy bruising Endo Endo: Negative for fatigue, cold intolerance, heat intolerance or excessive sweating Psych Psych: Negative for anxiety or depression Allergy Allergy/Immunology: Negative for rash Cardiology Exam Const Appearance: cooperative, healthy appearing, comfortable, no acute distress and well developed Orientation: alert, awake and oriented x3 Head Head: normal to inspection Ears: hearing grossly normal bilaterally Nose: external nose normal Face and Sinus: face symmetric Mouth: oral mucosae normal, lip normal and moist mucous membranes Eyes General: appearance normal, both eyes and all related structures Eyelids: eyelids normal Conjunctivae: conjunctivae normal Pupils: PERRL EOM: EOM intact bilaterally Neck Neck: normal visual inspection and trachea midline; Negative no JVD Carotids: Negative bruit Chest Chest inspection: normal inspection of the chest Auscultation: Bilateral: Clear to Auscultation Cardio Palpation: normal PMI Rate: regular rate Rhythm: regular rhythm Heart sounds: S1 normal and S2 normal; Negative rub, gallop or murmur GI GI: soft, no hepatosplenomegaly and bowel sounds present Neuro General: patient alert, patient awake, patient oriented x3 and CN's II-XI intact bilaterally Extremities Pulses: Normal: Right Posterior Tibial Pulse, Left Posterior Tibial Pulse, Right Radial Pulse and Left Radial Pulse Lower Extremity Edema: None: Bilateral Psych Psychological: normal affect Supplemental Info Supplemental Information Echocardiogram 2022: The estimated ejection fraction is 60 %. Moderate (2+) mitral valve insufficiency. Stress test 01/18/2023: Exercise myocardial perfusion stress test. 62-year-old man with a history of syncope Stress protocol: Resting EKG demonstrates normal sinus rhythm with a rate of 60 bpm resting blood pressure is 138/78 mmHg. The patient exercised according to the regular Pepito protocol for a total duration of 10 minutes and 30 seconds attaining a maximum heart rate of 148 bpm which was 93% of maximum predicted heart rate; the maximum workload was 13.4 metabolic equivalents. At rest there were no ST or T wave changes noted to suggest ischemia and at peak exercise upsloping ST changes only were noted which did not meet the criteria for ischemia. No clinical angina was noted the test was terminated due to the target heart rate being achieved/fatigue. The peak blood pressure was 160/78 mmHg. Rate-pressure product was 23,600. Myocardial perfusion protocol. 14.6 mCi of technetium 99m sestamibi was injected at rest. The patient exercised according to regular Pepito protocol for total duration of 10 minutes and 30 seconds and at peak exercise 44 point mCi of technetium 99m sestamibi was injected stress images were obtained stress and rest images were reconstructed in comparing the short axis vertical long and horizontal long axis. Gated images were also obtained. Perfusion SPECT analysis: Review of the stress images demonstrate normal uptake of tracer noted in all areas of the myocardium. The resting images similarly demonstrate normal uptake of tracer noted in all areas of the myocardium. No areas of reversibility are noted to suggest ischemia no previous infarct was noted. Gated SPECT analysis: The gated ejection fraction is 72%. Conclusion: Normal exercise myocardial perfusion stress test at a high workload Preserved ejection fraction. ? Assessment and Plan Assessment and Plan (1) Syncope and collapse: Status: Acute Plan: Patient's 30-day event monitor did not demonstrate anything significant however with the frequency of his syncopal events the day that he came to the hospital this is extremely concerning. Patient will proceed with loop recorder placement to further assess his heart rhythm and rate. He is agreeable with this.
[2023-02-21 15:09] LABS: Anion Gap 6 (5-15); BUN 15 mg/dL (7-18); BUN/Creat Ratio 14.2 RATIO (10-20); Chloride 107 mmol/L (98-107); Creatinine, Serum 1.06 mg/dL (0.70-1.30); EST Glomerular Filtration Rate 75 mL/min (>60); Est Glom Filt Rate - Afr Amer 91 mL/min (>60); Glucose 94 mg/dL (74-106); Potassium 4.2 mmol/L (3.5-5.1); Sodium Level 140 mmol/L (136-145)
[2023-03-01 09:34] VITALS: BMI 26.6
--- NOTE | 2023-03-04 10:01 | CL.IE_ITS ---
Patient: SUNITA CERDA Study Date: 03/04/2023 Performing: Elias Grimm MD : 1960 Age: 62 Gender: male PROCEDURES PERFORMED [id number])INSERTION OF LOOP RECORDER INDICATIONS Syncope PROCEDURE DETAILS The patient was brought to the Catheterization Lab in the postabsorptive nonsedated state. Informed consent was obtained prior to the procedure. Local anesthetic was given subcutaneously to the left upper chest area with Lidocaine 2%. Incision was made to the left upper chest. ICM Loop Recorder was inserted. Skin closure was completed with 4-0 Vicryl. Steri-strips applied to Lt chest area. The patient tolerated the procedure well. 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 Device Recommendations: Follow up with Primary Care Physician PROCEDURE MEDICATIONS Fentanyl 50 mcg IV Versed 1 mg IV Oxygen: 2 L/min via nasal cannula Antibiotic given in appropriate timeframe. Ancef 2 Gm IV @ 03/04/2023 09:36:00 Signed By Elias Grimm MD On 03/04/2023 10:00:28 Elias Grimm MD
== END | disposition home or self-care (01) ==
PROVIDERS: PCP Nurse Practitioner Family; Referring Provider Internal Medicine Cardiovascular Disease; Visit Provider Internal Medicine Cardiovascular Disease
DX: Z45.09 Encounter for adjustment and management of other cardiac device (principal); R55 Syncope and collapse; I34.0 Nonrheumatic mitral (valve) insufficiency; K21.9 Gastro-esophageal reflux disease without esophagitis; Z79.899 Other long term (current) drug therapy
CPT/HCPCS: 33285; 36415; 80048; 99152; J7040

== ENCOUNTER → 2023-05-08 | Outpatient (CLI) | payer OTHER, SELFPAY ==
--- NOTE | 2023-05-08 09:29 | RAD_ITS ---
STUDY: X-RAY - LEFT SHOULDER REASON FOR EXAM: Male, 62 years old. Pain. TECHNIQUE: 4 views of the left shoulder. COMPARISON: None. FINDINGS: Normal glenohumeral articulation. There is mild acromioclavicular arthrosis. Normal acromion. Normal humeral head and visualized proximal humerus. The soft tissue structures are unremarkable. There is no demonstrated fracture. Normal visualized pulmonary apex. RAD/Shoulder min 2 Views IMPRESSION: Mild acromioclavicular arthrosis. No demonstrated fracture. Electronically Signed: Ramirez Alves MD at 8:28 EDT ,
== END | disposition home or self-care (01) ==
LOC: MTRAD 09:27
PROVIDERS: PCP Nurse Practitioner Family; Referring Provider Nurse Practitioner Family; Visit Provider Nurse Practitioner Family
DX: M25.512 Pain in left shoulder (principal)
CPT/HCPCS: 73030

== ENCOUNTER → 2025-01-07 | Outpatient (CLI) | payer OTHER, SELFPAY ==
[2025-01-07 17:13] LABS: Absolute Lymphocyte Count 2.41 X10^3/uL (0.83-4.51); Absolute Neutrophil Count 5.7 X10^3/uL (2.0-7.7); Basophil# 0.05 X10^3/uL; Basophil% 0.5 % (0-1); Eosinophils% 3.2 % (0-5); Hematocrit 44.8 % (40-54); Hemoglobin 15.8 g/dL (13.0-16.5); Lymphocyte # 2.41 X10^3/ul (0.83-4.51); Lymphocyte % 26.1 % (19-41); Mean Corp Hgb Conc 35.3 g/dL (32-36); Mean Corpuscular Hgb 32.2 pg (27.0-32.0); Mean Corpuscular Volume 91.4 fL (80-94); Mean Platelet Vol. 9.7 fl (6.2-12.0); Monocyte# 0.72 X10^3/uL; Monocyte% 7.8 % (0-10); NRBC Flagged by Analyzer 0 % (0-5); Neutrophil # 5.72 X10^3/uL (2.7-7.7); Neutrophil % 61.9 % (47-70); Platelet Count 254 K/mm3 (150-450); RBC Distribution Width CV 12.8 % (11.6-14.6); RBC Distribution Width SD 43.2 fl (35.1-43.9); White Blood Count 9.3 K/mm3 (4.4-11.0)
[2025-01-07 17:21] LABS: Anion Gap 10 (5-15); BUN 13 mg/dL (4-19); BUN/Creat Ratio 11.7 RATIO (10-20); Calcium,Total 9.2 mg/dL (7.6-11.0); Carbon Dioxide 25.8 mmol/L (21.0-32.0); Chloride 103 mmol/L (98-108); EST Glomerular Filtration Rate 75 (>60); Glucose 92 mg/dL (70-99); Potassium 3.9 mmol/L (3.3-5.1); Sodium Level 139 mmol/L (133-145)
== END | disposition home or self-care (01) ==
LOC: LAB 16:28
PROVIDERS: PCP Nurse Practitioner Family; Referring Provider Internal Medicine Cardiovascular Disease; Visit Provider Internal Medicine Cardiovascular Disease
DX: I10 Essential (primary) hypertension (principal); R55 Syncope and collapse
CPT/HCPCS: 36415; 80048; 85025

== ENCOUNTER 2025-01-19 06:45 | Day surgery (SDC) | payer OTHER, SELFPAY ==
[2025-01-18 15:04] VITALS: BMI 26.1
--- NOTE | 2025-01-18 15:21 | PCM.HP.BLA ---
History and Physical Date of Admission: 01/19/25 HPI HPI History of Present Illness Details: Efe Arenas is a 64 year old that presents here today for removal of his loop recorder. He had previously had a history of recurrent syncope eventually evaluated with an event monitor and then an implantable loop recorder. He has had this for least 2 years he has not had any events on this and at this time he requests whether we can remove it. He has had only occasional dizziness no presyncope or syncope no neck arm or jaw discomfort suggest angina. He has been compliant with all his medications including his blood pressure medications. His physical exam today is unremarkable. Intake Vital Signs: See EMR Allergies: See EMR Medications: See EMR [facility] Medical History Multiple lipomas Essential hypertension Syncope and collapse Migraine GERD (gastroesophageal reflux disease) Back pain Surgical History History of excision of mass History of colonoscopy (~2010) History of appendectomy Family History Father Heart disease Myocardial infarctionMother Hypertension DVT (deep venous thrombosis) Social History Smoking Status: Never smoker alcohol intake: current substance use type: does not use ROS Const Const: Negative for fatigue, weakness, headache(s), daytime sleepiness or difficulty sleeping ENT ENT: Negative for headache(s), dizziness or Nosebleed/epistaxis Cardio Chest Pain: No Palpitations: No Edema: None Resp Respiratory: Negative for SOB with activity, SOB at rest, SOB orthopnea\SOB lying down or Cough GI GI: Negative nausea, vomiting or heartburn Neuro Neuro: Negative for dizziness, lightheadedness, near syncope, headache(s) or weakness Endo Endo: Negative for fatigue Cardiology Exam Const Appearance: cooperative, healthy appearing, comfortable, no acute distress and well developed Orientation: alert, awake and oriented x3 Head Head: normal to inspection Ears: hearing grossly normal bilaterally Nose: external nose normal Face and Sinus: face symmetric Mouth: oral mucosae normal, lip normal and moist mucous membranes Eyes General: appearance normal, both eyes and all related structures Eyelids: eyelids normal Conjunctivae: conjunctivae normal Pupils: PERRL EOM: EOM intact bilaterally Neck Neck: normal visual inspection and trachea midline; Negative no JVD Carotids: Negative bruit Chest Chest inspection: normal inspection of the chest Auscultation: Bilateral: Clear to Auscultation Cardio Palpation: normal PMI Rate: regular rate Rhythm: regular rhythm Heart sounds: S1 normal and S2 normal; Negative rub, gallop or murmur GI GI: soft, no hepatosplenomegaly and bowel sounds present Neuro General: patient alert, patient awake, patient oriented x3 and CN's II-XI intact bilaterally Extremities Pulses: Normal: Right Posterior Tibial Pulse, Left Posterior Tibial Pulse, Right Radial Pulse and Left Radial Pulse Lower Extremity Edema: None: Bilateral Psych Psychological: normal affect Supplemental Info Supplemental Information Echocardiogram 11/30/2022: The estimated ejection fraction is 60 %. Moderate (2+) mitral valve insufficiency. ? Stress test 01/18/2023: Normal exercise myocardial perfusion stress test at a high workload Preserved ejection fraction. Labs: No Data to Display Diagnostics: Pacemaker Procedure Note Pulmonary: No Data to Display Past Visits: Cardiology Visit 12/15/24 Assessment and Plan Assessment and Plan (1) Syncope and collapse: Status: Acute Plan: Pt has not had an further recurrence, and at this time he request that his loop recorder be explanted and we will oblige. This will be arranged.
--- OUTSIDE RECORDS SUMMARY | 2025-01-19 06:51 | XMS RPT_ITS | CCD ---
Author Organization [facility] Care Team Providers Care Joy Loader Name Role Phone Dr. Carlos Callejas Emergency Provider [phone] Dr. Ramone Carrera Primary Care Provider Dr. Blanca Alves Admit Provider Dr. Blanca Alves Attending Provider Dr. Blanca Alves Other Provider Dr. Roland Leo Attending Provider Dr. Roland Leo Other Provider Dr. Ramone Martinez Attending Provider Dr. Ramone Martinez Other Provider Dr. Ramone Carrera Referring Provider MARILY Burrows Attending Provider MARILY Burrows Referring Provider MARILY Burrows Other Provider Dean, MATERIAL EXPEDITER-C Sasha Primary Care Provider Dr. Elias Grimm Attending Provider Dr. Elias Grimm Attending Provider Dr. Elias Grimm Referring Provider Dr. Elias Grimm Other Provider Dean MATERIAL EXPEDITER-C, Sasha Primary Care Provider [phone] Dr. Elias Grimm MD Attending Provider Dean MATERIAL EXPEDITER-C, Sasha Referring Provider Dean MATERIAL EXPEDITER-C, Sasha Primary Care Provider [phone] Alfa HERMOSILLO, Dr. Griffin Attending Provider [phone] Dr. Elias Grimm MD Referring Provider [phone] AlfaFilipe kapoorril Attending Unavailable Dean, Sasha Primary Care Unavailable Lafa, Elias Attending Unavailable Dean, Sasha Primary Care Unavailable Alfa, Elias Attending Unavailable Dean, Sasha Primary Care Unavailable Dean, Sasha Primary Care Unavailable Alfa, Elias Attending Unavailable Alfa, Elias Attending Unavailable Dean, Sasha Referring Unavailable Dean, Sasha Primary Care Unavailable Dean, Sasha Primary Care Unavailable Alfa, Elias Attending Unavailable Alfa, Halethorpe Referring Unavailable Dean, Sasha Primary Care Unavailable Alfa, Elias Attending Unavailable Alfa, Elias Referring Unavailable Allergies Allergy Classification Reported Allergen(s) Allergy Type Date of Onset Reaction(s) Facility (9 sources) Adhesive Tape; Translations: [adhesive tape] Allergy to substance 12-01-19 23 blistering [facility] (8 sources) Triiodobenzoic Acids Propensity to adverse reactions 12-01-19 GI upset [facility] (3 sources) peppers; Translations: [peppers] Allergy to substance 12-16-19 Abd cramps/diarrhe a [facility] (1 source) Iodinated Contrast Media Drug allergy (disorder) 12-16-19 [facility] Repository Medications Current Medications Medication Drug Class(es) Dates Sig (Normalized) Sig (Original) chondroitin sulfates 400 mg / glucosamine hydrochloride 500 mg / methylsulfonylmethane 167 mg oral tablet (8 sources) Start: 02-16-2019 Glucosamine Vsi-Zuz-Qqypjvox tn 500-167-400 mg tablet Active 1 {tbl} PO DAILY February 16, 2019 12:00am lisinopril 10 mg oral tablet (8 sources) Angiotensin Converting Enzyme Inhibitor Start: 12-15-2024 take 1 tablet by mouth once daily Lisinopril 10 mg tablet Active 10 mg PO DAILY December 15, 2024 10:42am Start: 04-19-2023 End: 12-15-2024 take 1 tablet by mouth once daily Lisinopril 5 mg tablet Discontinued 5 mg PO DAILY 90 January 09, 2024 9:56am December 15, 2024 10:27am Completed/Discontinued Medications Medication Drug Class(es) Dates Sig (Normalized) Sig (Original) metoprolol tartrate 25 mg oral tablet (11 sources) beta-Adrenergic Eliazar Start: 03-01-2023 End: 04-19-2023 Metoprolol Tartrate 25 mg tablet Discontinued mg March 01, 2023 12:00am April 19, 2023 10:04am Start: 03-01-2023 Metoprolol Tar trate Active MG March 01, 2023 12:00am Start: 11-30-2022 End: 01-31-2023 take 1 tablet by mouth once daily Metoprolol Tartrate 25 mg tablet Discontinued 25 mg PO DAILY November 30, 2022 12:00am January 31, 2023 7:09pm Problems Problem Classification Problem Date Documented Da te Episodic/Chronic Essential hypertension (6 sources) Essential hypertension; Translations: [Essential (primary) hypertension] Onset: 01-11-2025 04-19-2023 Chronic Other and unspecified benign neoplasm (2 sources) Lipoma of right upper limb; Translations: [Benign lipomatous neoplasm of skin and subcutaneous tissue of right arm] 05-28-2023 Episodic Syncope (20 sources) Syncope; Translations: [Syncope and collapse] Onset: 12-15-2024 11-30-2022 Episodic Results Test Name Value Interpretation Reference Range Facility Absolute lymphocyte countOrd ered By: Elias Grimm on 01-07-2025 Lymphocytes Auto (Unsp spec) [#/Vol] 2.41 10*3/uL 0.83-4.51 [facility] Absolute neutrophil countOrd ered By: Elias Grimm on 01-07-2025 Neutrophils (Bld) [#/Vol] 5.7 10*3/uL 2.0-7.7 [facility] Anion gap in Serum or Plasma Ordered By: Elias Grimm on 01-07-2025 Anion gap [Moles/Vol] 10 mmol/L 12-17 [facility] Automated lymphocyte count a s percentage of total leukocytesOrdered By: Elias Grimm on 01-07-2025 Lymphocytes/100 WBC Auto (Unsp spec) 26.1 % [facility] BUN/creatinine ratioOrdered By: Elias Grimm on 01-07-2025 Urea nitrogen/Creatinine [Mass ratio] 11.7 mg/mg 10- [facility] Basic Metabolic Profile (BMP )on 01-07-2025 BUN/CRE 11.7 RATIO Normal - [facility] Comment on above: Performed By: #### L 100.0100, L500.2500 #### [facility] [address] [place], [address] Calcium [Mass/Vol] 9.2 mg/dL Normal 7.6-11.0 [facility] Comment on above: Performed By: #### L 100.0100, L500.2500 #### [facility] [address] [place], [address] Chloride [Moles/Vol] 103 mmol/L Normal 98-108 [facility] Comment on above: Performed By: #### L 100.0100, L500.2500 #### [facility] [address] [place], [address] CO2 [Moles/Vol] 25.8 mmol/L Normal 21.0-32.0 [facility] Comment on above: Performed By: #### L 100.0100, L500.2500 #### [facility] [address] [place], [address] Creatinine [Mass/Vol] 1.10 mg/dL Normal 0.70-1.20 [facility] Comment on above: Performed By: #### L 100.0100, L500.2500 #### [facility] [address] [place], [address] GAP 10 Normal 5-15 [facility] Comment on above: Performed By: #### L 100.0100, L500.2500 #### [facility] [address] [place], [address] GFR/1.73 sq M.predicted among non-blacks MDRD (S/P/Bld) [Vol rate/Area] 75 mL/min/{1.73_m2} Normal >60 [facility] Comment on above: Result Comment: mL/m in/1.73m2 CKD-EPI Creatinine Equation (2020) Performed By: #### L 100.0100, L500.2500 #### [facility] [address] [place], [address] Glucose [Mass/Vol] 92 mg/dL Normal 70-99 [facility] Comment on above: Performed By: #### L 100.0100, L500.2500 #### [facility] [address] [place], [address] Potassium [Moles/Vol] 3.9 mmol/L Normal 3.3-5.1 [facility] Comment on above: Performed By: #### L 100.0100, L500.2500 #### [facility] [address] [place], [address] Sodium [Moles/Vol] 139 mmol/L Normal 133-145 [facility] Comment on above: Performed By: #### L 100.0100, L500.2500 #### [facility] [address] [place], [address] Urea nitrogen [Mass/Vol] 13 mg/dL Normal 4-19 [facility] Comment on above: Performed By: #### L 100.0100, L500.2500 #### [facility] [address] [place], [address] Basophil percentageOrdered B y: Halethorpe Alfa on 01-07-2025 Basophils/100 WBC (Bld) 0.5 % 0-1 [facility] CBC W/Diff, Automatedon Absolute Lymph 2.41 X10 3/uL Normal 0.83-4.51 [facility] Comment on above: Performed By: #### L 100.0100, L500.2500 #### [facility] [address] [place], [address] Absolute Neut 5.7 X10 3/uL Normal 2.0-7.7 [facility] Comment on above: Performed By: #### L 100.0100, L500.2500 #### [facility] [address] [place], [address] Basophils/100 WBC (Bld) 0.5 % Normal 0-1 [facility] Comment on above: Performed By: #### L 100.0100, L500.2500 #### [facility] [address] [place], [address] Eosinophils/100 WBC (Bld) 3.2 % Normal 0-5 [facility] Comment on above: Performed By: #### L 100.0100, L500.2500 #### [facility] [address] [place], [address] Erythrocyte distribution width (RBC) [Ratio] 12.8 % Normal 11.6-14.6 [facility] Comment on above: Performed By: #### L 100.0100, L500.2500 #### [facility] [address] [place], [address] Hematocrit (Bld) [Volume fraction] 44.8 % Normal 40-54 [facility] Comment on above: Performed By: #### L 100.0100, L500.2500 #### [facility] [address] [place], [address] Hemoglobin (Bld) [Mass/Vol] 15.8 g/dL Normal 13.0-16.5 [facility] Comment on above: Performed By: #### L 100.0100, L500.2500 #### [facility] [address] [place], [address] IG% 0.500 Normal 0.0-0.9 [facility] Comment on above: Result Comment: IG% - Immature Granulocytes (promyelocytes, myelocytes and metamyelocytes) > 1% indicates that a LEFT SHIFT is Present. Performed By: #### L 100.0100, L500.2500 #### [facility] [address] [place], [address] Lymphocytes/100 WBC (Bld) 26.1 % Normal 19-41 [facility] Comment on above: Performed By: #### L 100.0100, L500.2500 #### [facility] [address] [place], [address] MCH (RBC) [Entitic mass] 32.2 pg High 27.0-32.0 [facility] Comment on above: Performed By: #### L 100.0100, L500.2500 #### [facility] [address] [place], [address] MCHC (RBC) [Mass/Vol] 35.3 g/dL Normal 32-36 [facility] Comment on above: Performed By: #### L 100.0100, L500.2500 #### [facility] [address] [place], [address] MCV (RBC) [Entitic vol] 91.4 fL Normal 80-94 [facility] Comment on above: Performed By: #### L 100.0100, L500.2500 #### [facility] [address] [place], [address] Monocytes/100 WBC (Bld) 7.8 % Normal 0-10 [facility] Comment on above: Performed By: #### L 100.0100, L500.2500 #### [facility] [address] [place], [address] Neutrophils/100 WBC (Bld) 61.9 % Normal 47-70 [facility] Comment on above: Performed By: #### L 100.0100, L500.2500 #### [facility] [address] [place], [address] Nucleated RBC (Bld) [#/Vol] 0 10*3/uL Normal 0-5 [facility] Comment on above: Performed By: #### L 100.0100, L500.2500 #### [facility] [address] [place], [address] Platelet mean volume (Bld) [Entitic vol] 9.7 fL Normal 6.2-12.0 [facility] Comment on above: Performed By: #### L 100.0100, L500.2500 #### [facility] [address] [place], [address] Platelets (Bld) [#/Vol] 254 10*3/uL Normal 150-450 [facility] Comment on above: Performed By: #### L 100.0100, L500.2500 #### [facility] [address] [place], [address] RBC (Bld) [#/Vol] 4.90 10*6/uL Normal 4.6-6.2 [facility] Comment on above: Performed By: #### L 100.0100, L500.2500 #### [facility] [address] [place], [address] RDW SD 43.2 fl Normal 35.1-43.9 [facility] Comment on above: Performed By: #### L 100.0100, L500.2500 #### [facility] [address] [place], [address] WBC (Bld) [#/Vol] 9.3 10*3/uL Normal 4.4-11.0 [facility] Comment on above: Performed By: #### L 100.0100, L500.2500 #### [facility] [address] [place], [address] Carbon dioxide, total [Moles /volume] in Central venous bloodOrdered By: Elias Grimm on 01-07-2025 CO2 [Moles/Vol] 25.8 mmol/L 21.0-32.0 [facility] Chloride assayOrdered By: Filipe Grimm on 01-07-2025 Chloride [Moles/Vol] 103 mmol/L 98-108 [facility] Eosinophil percentageOrdered By: Elias Grimm on 01-07-2025 Eosinophils/100 WBC (Bld) 3.2 % 0-5 [facility] Erythrocyte distribution wid th ratioOrdered By: Elias Grimm on 01-07-2025 Erythrocyte distribution width (RBC) [Ratio] 12.8 % 11.6-14.6 [facility] Erythrocyte distribution wid th standard deviationOrdered By: Elias Grimm on 01-07-2025 Erythrocyte distribution width (RBC) [Ratio] 43.2 fl 35.1-43.9 [facility] Glomerular filtration rate ( GFR) estimation/1.73 sq m using serum, plasma, or whole bOrdered By: Elias Grimm on 01-07-2025 GFR/1.73 sq M.predicted among non-blacks MDRD (S/P/Bld) [Vol rate/Area] 75 mL/min/{1.73_m2} >60 [facility] Comment on above: mL/min/1.73m2 CKD-EP I Creatinine Equation (2020) Hematocrit Auto (Bld) [Volum e fraction]Ordered By: Elias Grimm on 01-07-2025 Hematocrit (Bld) [Volume fraction] 44.8 % 40-54 [facility] Hemoglobin measurementOrdere d By: Elias Grimm on 01-07-2025 Hemoglobin (Bld) [Mass/Vol] 15.8 g/dL 13.0-16.5 [facility] Immature granulocytes/100 WB C Auto (Bld)Ordered By: Elias Grimm on 01-07-2025 Immature granulocytes/100 WBC (Bld) 0.500 % 0.0-0.9 [facility] Comment on above: IG% - Immature Granu locytes (promyelocytes, myelocytes and metamyelocytes) > 1% indicates that a LEFT SHIFT is Present. MCV (mean corpuscular volume ) determinationOrdered By: Elias Alfa on 01-07-2025 MCV (RBC) [Entitic vol] 91.4 fL 80-94 [facility] Mean corpuscular hemoglobin (MCH) determinationOrdered By: Halethorpe Alfa on 01-07-2025 MCH (RBC) [Entitic mass] 32.2 pg High 27.0-32.0 [facility] Mean corpuscular hemoglobin concentration (MCHC) determinationOrdered By: Halethorpe Alfa on 01-07-2025 MCHC (RBC) [Mass/Vol] 35.3 g/dL 32-36 [facility] Mean platelet volume determi nationOrdered By: Halethorpe Alfa on 01-07-2025 Platelet mean volume (Bld) [Entitic vol] 9.7 fL 6.2-12.0 [facility] Monocyte percentageOrdered B y: Elias Alfa on 01-07-2025 Monocytes/100 WBC (Bld) 7.8 % 0-10 [facility] Neutrophil percentageOrdered By: Halethorpe Alfa on 01-07-2025 Neutrophils/100 WBC (Bld) 61.9 % 47-70 [facility] Nucleated red blood cell per centageOrdered By: Elias Alfa on 01-07-2025 Nucleated RBC/100 WBC (Bld) [Ratio] 0 % 0-5 [facility] Platelet countOrdered By: Cy ril Alfa on 01-07-2025 Platelets (Bld) [#/Vol] 254 10*3/uL 150-450 [facility] Potassium measurement (mass/ volume)Ordered By: Halethorpesoheila Grimm on 01-07-2025 Potassium (Unsp spec) [Mass/Vol] 3.9 mmol/L 3.3-5.1 [facility] RBC Auto (Bld) [#/Vol]Ordere d By: Halethorpe Alfa on 01-07-2025 RBC (Bld) [#/Vol] 4.90 10*6/uL 4.6-6.2 [facility] Serum creatinine measurement (mass/volume)Ordered By: Elias Grimm on 01-07-2025 Creatinine [Mass/Vol] 1.10 mg/dL 0.70-1.20 [facility] Serum glucose measurement (m ass/volume)Ordered By: Elias Grimm on 01-07-2025 Glucose [Mass/Vol] 92 mg/dL 70-99 [facility] Serum or plasma calcium estefania urement (mass/volume)Ordered By: Elias Grimm on 01-07-2025 Calcium [Mass/Vol] 9.2 mg/dL 7.6-11.0 [facility] Serum or plasma urea nitroge n measurement (mass/volume)Ordered By: Elias Grimm on 01-07-2025 Urea nitrogen [Mass/Vol] 13 mg/dL 4-19 [facility] Sodium levelOrdered By: Sedrick Grimm on 01-07-2025 Sodium [Moles/Vol] 139 mmol/L 133-145 [facility] White blood cell (WBC) count Ordered By: Elias Grimm on 01-07-2025 WBC (Bld) [#/Vol] 9.3 10*3/uL 4.4-11.0 [facility] Cardiology Visit Reporton Cardiology Visit Report [facility] [address] [place], [place] [address] OFFICE VISIT Date of Service: 12/15/24 MR#: [id number] Acct: [id number] Name: EFE ARENAS Rep #: [id number] : 1960 Provider: Dr. Elias Grimm MD Age/Sex: 64/M Location: [facility] Status: Signed HPI HPI History of Present Illness Details: Efe Arenas is a 64 year old that presents here today for a hospital follow up. He had previously had a history of recurrent syncope eventually evaluated with an event monitor and then an implantable loop recorder. He has had this for least 2 years he has not had any events on this and at this time he requests whether we can remove it. He has had only occasional dizziness no presyncope or syncope no neck arm or jaw discomfort suggest angina. He has been compliant with all his medications including his blood pressure medications. His physical exam today is unremarkable. Intake Vital Signs 10/21/23 10:41 12/15/24 10:21 Height 6 ft 6 in 6 ft 6 in Weight: 226 lb BMI 26.1 BP 136/85 H Blood Pressure Location Lt brachial Position Sitting Respiration 14 Pulse 80 Pulse Source Monitor Intake Visit Reasons: 1 Y FU Car Shagger Required: No Accompanied by: Self Is patient in pain?: No Allergies adhesive tape Allergy (Mild, Verified 12/15/24 10:23) blistering Iodinated Contrast Media (Iodinated Contrast- Oral and IV Dye) Adverse Reaction (Mild, Verified 12/15/24 10:23) GI upset peppers Allergy (Mild, Uncoded 12/15/24 10:23) Abd cramps/diarrhea Medications ???Medication ???Instructions ???Recorded ???Confirmed ???Type glucosamine [id number] 1 tab PO DAILY 02/16/19 12/15/24 H istory 500 mg-167 mg-400 mg tablet lisinopril 10 mg tablet 10 mg PO DAILY #90 tabs 12/15/24 0 12/15/24 Rx Have you fallen in the past year?: No PFSH Medical History Multiple lipomas Essential hypertension Syncope and collapse Migraine GERD (gastroesophageal reflux disease) Back pain Surgical History History of excision of mass History of colonoscopy ( 2010) History of appendectomy Family History Father Heart disease Myocardial infarction Mother Hypertension DVT (deep venous thrombosis) Social History Smoking Status: Never smoker alcohol intake: current substance use type: does not use ROS Const Const: Negative for fatigue, weakness, headache(s), daytime sleepiness or difficulty sleeping ENT ENT: Negative for headache(s), dizziness or Nosebleed/epistaxis Cardio Chest Pain: No Palpitations: No Edema: None Resp Respiratory: Negative for SOB with activity, SOB at rest, SOB orthopnea SOB lying down or Cough GI GI: Negative nausea, vomiting or heartburn Neuro Neuro: Negative for dizziness, lightheadedness, near syncope, headache(s) or weakness Endo Endo: Negative for fatigue Cardiology Exam Const Appearance: cooperative, healthy appearing, comfortable, no acute distress and well developed Orientation: alert, awake and oriented x3 Head Head: normal to inspection Ears: hearing grossly normal bilaterally Nose: external nose normal Face and Sinus: face symmetric Mouth: oral mucosae normal, lip normal and moist mucous membranes Eyes General: appearance normal, both eyes and all related structures Eyelids: eyelids normal Conjunctivae: conjunctivae normal Pupils: PERRL EOM: EOM intact bilaterally Neck Neck: normal visual inspection and trachea midline; Negative no JVD Carotids: Negative bruit Chest Chest inspection: normal inspection of the chest Auscultation: Bilateral: Clear to Auscultation Cardio Palpation: normal PMI Rate: regular rate Rhythm: regular rhythm Heart sounds: S1 normal and S2 normal; Negative rub, gallop or murmur GI GI: soft, no hepatosplenomegaly and bowel sounds present Neuro General: patient alert, patient awake, patient oriented x3 and CN's II-XI intact bilaterally Extremities Pulses: Normal: Right Posterior Tibial Pulse, Left Posterior Tibial Pulse, Right Radial Pulse and Left Radial Pulse Lower Extremity Edema: None: Bilateral Psych Psychological: normal affect Supplemental Info Supplemental Information Echocardiogram 11/30/2022: The estimated ejection fraction is 60 %. Moderate (2+) mitral valve insufficiency. ??? Stress test 01/18/2023: Normal exercise myocardial perfusion stress test at a high workload Preserved ejection fraction. Labs: No Data to Display Diagnostics: Pacemaker Procedure Note Pulmonary: No Data to Display Past Visits: Cardiol (more content not included)... Normal [facility] Basophil percentageOrdered B y: Halethorpe Alfa on 02-21-2023 Chloride [Moles/Vol] 107 mmol/L 98-107 [facility] Glucose [Mass/Vol] 94 mg/dL 74-106 [facility] Potassium [Moles/Vol] 4.2 mmol/L 3.5-5.1 [facility] Comment on above: Slight Hemolysis, Re sult may be falsely increased. Sodium [Moles/Vol] 140 mmol/L 136-145 [facility] - Chemistry and C hemistry - challengeOrdered By: Halethorpe Alfa on 02-21-2023 CO2 [Moles/Vol] 27.0 mmol/L 21.0-32.0 [facility] Urea nitrogen/Creatinine [Mass ratio] 14.2 mg/mg 05-24 [facility] No Panel InformationOrdered By: Elias Grimm on 02-21-2023 Estimated GFR (MDRD) Amer 91 mL/min >60 [facility] Comment on above: GFR Calc Estimated GFR (MDRD) Non-Af Amer 75 mL/min >60 [facility] Comment on above: Non- GFR Calc Serum or plasma calcium estefania urement (mass/volume)Ordered By: Elias Grimm on 02-21-2023 Calcium [Mass/Vol] 9.0 mg/dL 8.5-10.1 [facility] Serum or plasma creatinine m easurement (mass/volume)Ordered By: Elias Grimm on 02-21-2023 Creatinine [Mass/Vol] 1.06 mg/dL 0.70-1.30 [facility] Comment on above: The validity of the calculated GFR & GFRAA in patients over 70 years has not been determined. Clinical correlation is essential. Serum or plasma urea nitroge n measurement (mass/volume)Ordered By: Elias Grimm on 02-21-2023 Urea nitrogen [Mass/Vol] 15 mg/dL 7-18 [facility] Thin prep Papanicolaou smear with manual screeningOrdered By: Elias Grimm on 02-21-2023 Thin prep Papanicolaou smear with manual screening 6 5-15 [facility] Basophil percentageOrdered B y: Dr. Grimm on 01-28-2023 Chloride [Moles/Vol] 107 mmol/L 98-107 [facility] Glucose [Mass/Vol] 127 mg/dL 74-106 [facility] Comment on above: Fasting Glucose resu lt greater than or equal to 126 mg/dL suggests DIABETES MELLITUS per A.D.A. criteria. Potassium [Moles/Vol] 4.2 mmol/L 3.5-5.1 [facility] Sodium [Moles/Vol] 139 mmol/L 136-145 [facility] - Chemistry and C hemistry - challengeOrdered By: Dr. Grimm on 01-28-2023 CO2 [Moles/Vol] 28.0 mmol/L 21.0-32.0 [facility] Urea nitrogen/Creatinine [Mass ratio] 13.9 mg/mg 20 [facility] No Panel InformationOrdered By: Dr. Grimm on 01-28-2023 Estimated Creatinine Clearance Calc 87.21 ml/min [facility] Estimated GFR (MDRD) Amer 83 mL/min >60 [facility] Comment on above: GFR Calc Estimated GFR (MDRD) Non-Af Amer 69 mL/min >60 [facility] Comment on above: Non- GFR Calc Serum or plasma calcium estefania urement (mass/volume)Ordered By: Dr. Grimm on 01-28-2023 Calcium [Mass/Vol] 8.7 mg/dL 8.5-10.1 [facility] Serum or plasma creatinine m easurement (mass/volume)Ordered By: Dr. Grimm on 01-28-2023 Creatinine [Mass/Vol] 1.15 mg/dL 0.70-1.30 [facility] Comment on above: The validity of the calculated GFR & GFRAA in patients over 70 years has not been determined. Clinical correlation is essential. Serum or plasma urea nitroge n measurement (mass/volume)Ordered By: Dr. Grimm on 01-28-2023 Urea nitrogen [Mass/Vol] 16 mg/dL 7-18 [facility] Thin prep Papanicolaou smear with manual screeningOrdered By: Dr. Grimm on 01-28-2023 Thin prep Papanicolaou smear with manual screening 4 5-15 [facility] No Panel InformationOrdered By: Dr. Carrera on 01-04-2023 Prostate Specific Antigen Screen 1.75 ng/mL 0.00-4.00 [facility] Comment on above: This test was perfor med using the TPSA assay method for theDimension chemistry system. Values obtained with differentassay methods cannot be used interchangably.When changing PSA assays in the course of monitoring apatient, additional sequential testing should be carriedout to confirm baseline values. Basophil percentageOrdered B y: Dr. Alves on 12-01-2022 Basophil percentage 3.0 mg/dL 2.5-4.9 [facility] Laboratory - Chemistry and C hemistry - challengeOrdered By: Dr. Alves on 12-01-2022 Magnesium [Mass/Vol] 2.2 mg/dL 1.6-2.6 [facility] No Panel InformationOrdered By: Dr. Alves on 12-01-2022 Thyroid Stimulating Hormone (TSH) 1.28 uIU/mL 0.358-3.74 [facility] Absolute lymphocyte countOrd ered By: Dr. Callejas on 11-30-2022 Lymphocytes Auto (Unsp spec) [#/Vol] 2.73 10*3/uL 0.83-4.51 [facility] Basophil percentageOrdered B y: Dr. Callejas on 11-30-2022 Basophils/100 WBC (Bld) 0.7 % 0-1 [facility] Bilirubin [Mass/Vol] 0.80 mg/dL 0.20-1.00 [facility] Comment on above: For patients on eltr ombopag therapy, use of Dimension [place] TBIL is not recommended. Chloride [Moles/Vol] 109 mmol/L 98-107 [facility] Eosinophils/100 WBC (Bld) 3.9 % 0-5 [facility] Glucose [Mass/Vol] 119 mg/dL 74-106 [facility] Comment on above: Fasting Glucose resu lt from 100 to 125 mg/dL suggests IMPAIRED HOMEOSTASIS per A.D.A. criteria. Neutrophils (Bld) [#/Vol] 4.3 10*3/uL 2.0-7.7 [facility] Neutrophils/100 WBC (Bld) 51.2 % 47-70 [facility] Potassium [Moles/Vol] 3.6 mmol/L 3.5-5.1 [facility] Protein [Mass/Vol] 6.8 g/dL 6.4-8.2 [facility] Sodium [Moles/Vol] 138 mmol/L 136-145 [facility] WBC (Bld) [#/Vol] 8.5 10*3/uL 4.4-11.0 [facility] Blood erythrocytes count (nu mber/volume)Ordered By: Dr. Callejas on 11-30-2022 RBC (Bld) [#/Vol] 4.55 10*6/uL 4.6-6.2 [facility] Blood hemoglobin measurement (mass/volume)Ordered By: Dr. Callejas on 11-30-2022 Hemoglobin (Bld) [Mass/Vol] 14.6 g/dL 13.0-16.5 [facility] Blood lymphocytes/100 leukoc ytesOrdered By: Dr. Callejas on 11-30-2022 Lymphocytes/100 WBC (Bld) 32.3 % 19-41 [facility] Blood monocytes/100 leukocyt esOrdered By: Dr. Callejas on 11-30-2022 Monocytes/100 WBC (Bld) 11.5 % 0-10 [facility] Blood platelet mean volumeOr dered By: Dr. Callejas on 11-30-2022 Platelet mean volume (Bld) [Entitic vol] 10.3 fL 6.2-12.0 [facility] Determination of erythrocyte mean corpuscular volume (MCV)Ordered By: Dr. Callejas on 11-30-2022 MCV (RBC) [Entitic vol] 91.2 fL 80-94 [facility] Direct bilirubinOrdered By: Dr. Callejas on 11-30-2022 Bilirubin.direct [Mass/Vol] 0.19 mg/dL 0.00-0.30 [facility] Hematocrit Auto (Bld) [Volum e fraction]Ordered By: Dr. Callejas on 11-30-2022 Hematocrit (Bld) [Volume fraction] 41.5 % 40-54 [facility] Laboratory - Chemistry and C hemistry - challengeOrdered By: Dr. Callejas on 11-30-2022 ALP [Catalytic activity/Vol] 43 U/L 45-117 [facility] ALT [Catalytic activity/Vol] 25 U/L 16-61 [facility] CO2 [Moles/Vol] 22.0 mmol/L 21.0-32.0 [facility] Globulin (S) [Mass/Vol] 3.2 g/dL 2.2-4.2 [facility] Lipase [Catalytic activity/Vol] 27 U/L 13-75 [facility] Comment on above: Please note:LIPASE r evised reference range effective 22. New Lipase methodology. Expected to produce lower values than the previous assay method. NEW Reference Range: 13 - 75 U/L Natriuretic peptide B (Bld) [Mass/Vol] 23.3 pg/mL 0-100 [facility] Urea nitrogen/Creatinine [Mass ratio] 15.8 mg/mg 10-20 [facility] Laboratory - Hematology and Cell countsOrdered By: Dr. Callejas on 11-30-2022 Erythrocyte distribution width (RBC) [Entitic vol] 44.4 fL 35.1-43.9 [facility] Erythrocyte distribution width (RBC) [Ratio] 13.3 % 11.6-14.6 [facility] Immature granulocytes/100 WBC (Bld) 0.400 % 0.0-0.9 [facility] Comment on above: IG% - Immature Granu locytes (promyelocytes, myelocytes and metamyelocytes) > 1% indicates that a LEFT SHIFT is Present. MCH (RBC) [Entitic mass] 32.1 pg 27.0-32.0 [facility] Nucleated RBC/100 WBC (Bld) [Ratio] 0 % 0-5 [facility] MCHC Auto (RBC) [Mass/Vol]Or dered By: Dr. Callejas on 11-30-2022 MCHC (RBC) [Mass/Vol] 35.2 g/dL 32-36 [facility] No Panel InformationOrdered By: Dr. Callejas on 11-30-2022 Troponin I High Sensitivity 4 pg/mL 3.0-78.0 [facility] Comment on above: Please Note: New Khadra t Units and Gender Specific Reference Ranges. For more information see Policy Stat Procedure [place] High Sensitivity Troponin (TNIH) and attachments. Estimated Creatinine Clearance Calc 68.05 ml/min [facility] Estimated GFR (MDRD) Amer 84 mL/min >60 [facility] Comment on above: GFR Calc Estimated GFR (MDRD) Non-Af Amer 69 mL/min >60 [facility] Comment on above: Non- GFR Calc Platelets bldOrdered By: Dr. Callejas on 11-30-2022 Platelets (Bld) [#/Vol] 247 10*3/uL 150-450 [facility] Serum or plasma albumin estefania urement (mass/volume)Ordered By: Dr. Callejas on 11-30-2022 Albumin [Mass/Vol] 3.6 g/dL 3.2-5.0 [facility] Serum or plasma calcium estefania urement (mass/volume)Ordered By: Dr. Callejas on 11-30-2022 Calcium [Mass/Vol] 8.7 mg/dL 8.5-10.1 [facility] Serum or plasma creatinine m easurement (mass/volume)Ordered By: Dr. Callejas on 11-30-2022 Creatinine [Mass/Vol] 1.14 mg/dL 0.70-1.30 [facility] Comment on above: The validity of the calculated GFR & GFRAA in patients over 70 years has not been determined. Clinical correlation is essential. Serum or plasma urea nitroge n measurement (mass/volume)Ordered By: Dr. Callejas on 11-30-2022 Urea nitrogen [Mass/Vol] 18 mg/dL 7-18 [facility] Thin prep Papanicolaou smear with manual screeningOrdered By: Dr. Callejas on 11-30-2022 Thin prep Papanicolaou smear with manual screening 20 U/L 15- [facility] Thin prep Papanicolaou smear with manual screening 7 5-15 [facility] Vital Signs Date Time Vital Sign Value Performing Clinician Faci lity 12-15-2024 10:21-0400 Body height 198.12 cm Sasha Moran MATERIAL EXPEDITER-C Work Phone: [facility] 12-15-2024 10:21-0400 Body mass index (BMI) [Ratio] 26.1 kg/m2 Sasha Dean MATERIAL EXPEDITER-C Work Phone: [facility] 12-15-2024 10:21-0400 Body weight 102.51 kg Sasha Dean MATERIAL EXPEDITER-C Work Phone: [facility] 12-15-2024 10:21-0400 Diastolic blood pressure 85 mm[Hg] Sasha Moran MATERIAL EXPEDITER-C Work Phone: [facility] 12-15-2024 10:21-0400 Heart rate 80 /min Sasha Dean MATERIAL EXPEDITER-C Work Phone: [facility] 12-15-2024 10:21-0400 Respiratory rate 14 /min Sasha Dean MATERIAL EXPEDITER-C Work Phone: [facility] 12-15-2024 10:21-0400 Systolic blood pressure 136 mm[Hg] Sasha Dean MATERIAL EXPEDITER-C Work Phone: [facility] 03-04-2023 09:03-0400 Body height 198.[address] Carlos Callejas Work Phone: 9(596)783-752686 [place] [address] 03-04-2023 09:03-0400 Body weight 104.[address] Carlos Callejas Work Phone: 3(152)160-687286 [place] [address] 03-01-2023 09:34-0400 Body mass index (BMI) [Ratio] 26.6 kg/m2 Dr. Carlos Callejas Work Phone: 4(530)652-146886 [place] [address] 01-30-2023 11:14-0400 Body height 198.[address] Carlos Callejas Work Phone: 4(613)852-456186 [place] [address] 01-30-2023 11:14-0400 Body weight 102.[address] Carlos Callejas Work Phone: 0(106)391-077086 [place] [address] 01-30-2023 11:13-0400 Body mass index (BMI) [Ratio] 25.9 kg/m2 Dr. Carlos Callejas Work Phone: 7(760)069-358886 [place] [address] 01-28-2023 07:19-0400 Body height 198.[address] Carlos Callejas Work Phone: 5(109)079-021286 [place] [address] 01-28-2023 07:19-0400 Body weight 104.[address] Carlos Callejas Work Phone: 0(766)281-217386 [place] [address] 01-25-2023 08:36-0400 Body mass index (BMI) [Ratio] 26.6 kg/m2 Dr. Carlos Callejas Work Phone: 0(637)472-645386 [place] [address] 01-08-2023 09:19-0400 Body height 198.[address] Carlos Callejas Work Phone: 8(153)032-811886 [place] [address] 01-08-2023 09:19-0400 Body mass index (BMI) [Ratio] 26.6 kg/m2 Dr. Carlos Callejas Work Phone: 0(087)110-642786 [place] [address] 01-08-2023 09:19-0400 Body weight 104.[address] Carlos Callejas Work Phone: 2(272)747-440786 [place] [address] 01-08-2023 09:19-0400 Diastolic blood pressure 89 mm[Hg] Dr. Carlos Callejas Work Phone: 7(432)625-267421 [place] [address] 01-08-2023 09:19-0400 Heart rate 71 /min Dr. Carlos Callejas Work Phone: 5(873)683-951886 [place] [address] 01-08-2023 09:19-0400 Respiratory rate 18 /min Dr. Carlos Callejas Work Phone: 3(946)770-623286 [place] [address] 01-08-2023 09:19-0400 SaO2% (BldA) [Mass fraction] 97 % Dr. Carlos Callejas Work Phone: 7(535)804-404521 [place] [address] 01-08-2023 09:19-0400 Systolic blood pressure 144 mm[Hg] Dr. Carlos Callejas Work Phone: 2(564)633-842486 [place] [address] 12-01-2022 12:56-0400 Heart rate 82 /min Dr. Carlos Callejas Work Phone: 6(289)371-369486 [place] [address] 12-01-2022 12:52-0400 Body temperature 97.2 [degF] Dr. Carlos Callejas Work Phone: 1(970)870-239086 [place] [address] 12-01-2022 12:52-0400 Diastolic blood pressure 77 mm[Hg] Dr. Carlos Callejas Work Phone: 8(049)411-867786 [place] [address] 12-01-2022 12:52-0400 Respiratory rate 16 /min Dr. Carlos Callejas Work Phone: 1(982)835-723721 [place] [address] 12-01-2022 12:52-0400 SaO2% (BldA) [Mass fraction] 96 % Dr. Carlos Callejas Work Phone: 1(479)413-594721 [place] [address] 12-01-2022 12:52-0400 Systolic blood pressure 136 mm[Hg] Dr. Carlos Callejas Work Phone: 5(187)380-293686 [place] [address] 12-01-2022 05:48-0400 Body mass index (BMI) [Ratio] 26.3 kg/m2 Dr. Carlos Callejas Work Phone: 7(571)550-653121 [place] [address] 12-01-2022 05:48-0400 Body weight 103.[address] Carlos Callejas Work Phone: [facility] 11-30-2022 20:00-0400 Body height 198.[address] Carlos Callejas Work Phone: [facility] 11-30-2022 19:15-0400 Body temperature 98 [degF] [facility] 11-30-2022 19:15-0400 Diastolic blood pressure 81 mm[Hg] [facility] 11-30-2022 19:15-0400 Heart rate 71 /min [facility] 11-30-2022 19:15-0400 Respiratory rate 14 /min [facility] 11-30-2022 19:15-0400 SaO2% (BldA) [Mass fraction] 98 % [facility] 11-30-2022 19:15-0400 Systolic blood pressure 144 mm[Hg] [facility] 11-30-2022 16:04-0400 Body mass index (BMI) [Ratio] 33.5 kg/m2 [facility] 11-30-2022 16:04-0400 Body weight 103 kg [facility] 11-30-2022 15:29-0400 Body height 175.26 cm [facility] Encounters Encounter Date Encounter Type Care Provider Facility Start: 01-07-2025 End: 01-07-2025 ambulatory Sasha Moran MATERIAL EXPEDITER-C Work Phone: [facility] Work Phone: Start: 01-07-2025 End: 01-07-[address] Elias Grimm MD -Laboratory Work Phone: Start: 01-07-2025 End: 01-07-2025 ambulatory Sasha Sandovalgar Facility:[facility] Start: 12-15-2024 End: 12-15-[address] Elias Grimm MD -[facility] Work Phone: Start: 12-15-2024 End: 12-15-2024 ambulatory Sasha Moran MATERIAL EXPEDITER-C Work Phone: [facility] Work Phone: Start: 12-02-2024 End: 12-02-2024 ambulatory Elias Alfa Facility:[facility] Start: 12-02-2024 End: 12-02-[address] Elias Grimm MD -[facility] Work Phone: Start: 09-02-2024 End: 09-02-2024 ambulatory Elias Alfa Facility:[facility] Start: 09-02-2024 End: 09-02-[address] Elias Grimm [facility] -[facility] Work Phone: Start: 06-03-2024 End: 06-03-2024 ambulatory Elias Grimm Facility:[facility] Start: 03-04-2024 End: 03-04-2024 ambulatory Sasha Moran Facility:[facility] Start: 03-04-2023 End: 03-04-2023 Admission to same day surgery center [facility] Work Phone: Start: 03-04-2023 End: 03-04-[address] Carlos Callejas Work Phone: [facility] Work Phone: Start: 02-21-2023 Non-patient / Non-visit Dr. Peterson Work Phone: [facility] Start: 01-30-2023 End: 01-30-2023 Admission to same day surgery center Dr. [facility] Callejas [facility] Work Phone: Start: 01-30-2023 End: 01-30-[address] Carlos Callejas Work Phone: [facility] Work Phone: Start: 01-28-2023 End: 01-28-2023 Admission to same day surgery center Dr. [facility] Callejas [facility] Start: 01-28-2023 End: 01-28-[address] Carlos Callejas Work Phone: [facility] Work Phone: Start: 01-18-2023 Non-patient / Non-visit Dr. Peterson Work Phone: [facility] Start: 01-18-2023 End: 01-18-[address] Carlos Callejas Work Phone: [facility] Start: 01-08-2023 End: 01-08-[address] Carlos Callejas Work Phone: [facility] Start: 01-04-2023 End: 01-04-[address] Carlos Callejas Work Phone: [facility] Work Phone: Start: 01-04-2023 End: 01-04-[address] Carlos Callejas Work Phone: [facility] Start: 12-20-2022 End: 12-20-2022 Non-patient / Non-visit Dr. Carlos Callejas Work Phone: [facility] Work Phone: Start: 12-20-[address] Carlos Callejas Work Phone: [facility] Start: 12-10-2022 Non-patient / Non-visit Dr. Peterson Work Phone: [facility] Start: 12-01-2022 Non-patient / Non-visit Dr. Peterson Work Phone: [facility] Start: 11-30-2022 Non-patient / Non-visit Dr. Petesron Work Phone: [facility] Start: 11-30-2022 End: 12-01-2022 Evaluation and management of inpatient [facility] Start: 11-30-2022 End: 12-01-[address] Carlos Callejas Work Phone: [facility] Work Phone: Procedures Date Procedure Procedure Detail Performing Clinician Start: 01-18-2023 Radionuclide imaging of perfusion of myocardium under exercise stress Dr. Carlos Callejas Work Phone: Start: 11-30-2022 Plain chest X-ray Plan of Treatment Date Care Activity Detail Author Start: 01-19-2025 ambulatory Ambulatory Facility:[facility] Start: 03-04-2023 Patient discharge [facility] Start: 01-30-2023 Patient discharge [facility] Start: 12-01-2022 Patient discharge [facility] Start: 11-30-2022 Following clinical p athway protocol [facility] Start: 11-30-2022 Assessment of risk o f venous thromboembolism [facility] Start: 11-30-2022 Cardiac monitoring [facility] Start: 11-30-2022 Catheterization of vein [facility] Start: 11-30-2022 Incentive spirometry [facility] Start: 11-30-2022 Insertion of cathete r into peripheral vein [facility] Start: 11-30-2022 Measuring intake and output [facility] Start: 11-30-2022 Oxygen therapy [facility] Start: 11-30-2022 Providing care accor ding to standard [facility] Start: 11-30-2022 Provision of activit y privileges [facility] Start: 11-30-2022 Referral to sink maker [facility] Start: 11-30-2022 Referral to service [facility] Start: 11-30-2022 [facility] Start: 11-30-2022 Verification routine [facility] Start: 11-30-2022 Admission procedure [facility] Start: 11-30-2022 [facility] Cardiac event recording [facility] Patient referral [facility] Work Phone: Radionuclide imaging of perfusion of myocardium under exercise stress [facility] Replacement of elect ronic heart device, pulse generator [facility] Replacement of elect ronic heart device, pulse generator [facility] Immunizations Immunization Date Immunization Notes Care Provider Fa jtty 06-26-2021 Covid (Pfizer) Dr. Carlos Acevedo nnedy Work Phone: [facility] 11-18-2020 Covid (Pfizer) Dr. Carlos Acevedo nnedy Work Phone: [facility] 10-28-2020 Covid (Pfizer) Dr. Carlos Acevedo nnedy Work Phone: [facility] Payers Date Payer Category Payer Self-pay [id number] 2023 Private Health Insurance [id number] Unknown [id number] [id number] [id number] Unknown [id number] 2.16.8 [id number] Unknown [id number] 2.16.8 [id number] Unknown [id number] 2.16.8 [id number] Unknown [id number] 2.16.8 [id number] Unknown [id number] 2.16.8 [id number] Unknown [id number] 2.16.8 [id number] Social History Date Type Detail Facility Start: 11-30-2022 End: 03-04-2023 Tobacco smoking status NHIS Unknown if ever smoked [facility] Start: 1960 Sex Assigned At Male [facility] Start: 10-21-2023 Tobacco smoking stat us NHIS Never smoked tobacco (finding) [facility] Medical Equipment Procedure Code Equipment Code Equipment Origin al Text Equipment Identifier Dates ([id number]) Implantable card iac monitor ([id number] FDA Start: 01-28-2023 ([id number]) Implantable card iac monitor ()[id number] FDA Start: 03-04-2023 Goals Date Patient Goal Desired Activity /State Functional Status Date Assessment Result Facility 12-01-2022 Functional status Ambulates [facility] Work Phone: Mental Status Date Assessment Result Facility 12-01-2022 Cognitive function Voice/Name [facility] Work Phone: 11-30-2022 Cognitive function Level Of Cons ciousness Awake;Alert;Appropriate;Follow s Commands [facility] Work Phone: Clinical Notes 11-30-2022 to 12-15-2024 Note Date & Type Note Facility 12-15-2024 Evaluation note Diagnosis Onset Date Resolution Essential hypertension acute 2024 10:11am Syncope and collapse acute December 15, 2024 10:11am [facility] Work Phone: 1(330) 880-104505-13-2025 [facility] [address] [place], [place] [address] OFFICE VISIT Date of Service: 12/15/24 MR#: [id number] Acct: [id number] Name: EFE ARENAS Rep #: [id number] : 1960 Provider: Dr. Sedrick Grimm MD Age/Sex: 64/M Location[place] [facility] Status: Signed HPI HPI History of Present Illness Details: Efe Arenas is a 64 year old that presents here today for a hospital followup. He had previously had a history of recurrent syncope eventually evaluated with an event monitor and then an implantable loop recorder. He has had this for least 2 years he has not had any events on this and at this time he requestswhether we can remove it. He has had only occasional dizziness no presyncope orsyncope no neck arm or jaw discomfort suggest angina. He has been compliant with all his medications including his blood pressure medications. His physicalexam today is unremarkable. Intake Vital Signs 10/21/23 10:41 12/15/24 10:21 Height 6 ft 6 in 6 ft 6 in Weight: 226 lb BMI 26.1 BP 136/85 H Blood Pressure Location Lt brachial Position Sitting Respiration 14 Pulse 80 Pulse Source Monitor Intake Visit Reasons: 1 Y FU Car Shagger Required: No Accompanied by: Self Is patient in pain?: No Allergies adhesive tape Allergy (Mild, Verified 12/15/24 10:23) blistering Iodinated Contrast Media (Iodinated Contrast- Oral and IV Dye) Adverse Reaction (Mild, Verified 12/15/24 10:23) GI upset peppers Allergy (Mild, Uncoded 12/15/24 10:23) Abd cramps/diarrhea Medications ?Medication ?Instructions ?Recorded ?Confirmed ?Type glucosamine [id number] 1 tab PO DAILY 9 12/15/24 History 500 mg-167 mg-400 mg tablet lisinopril 10 mg tablet 10 mg PO DAILY #90 tabs 12/0312/15/24 Rx Have you fallen in the past year?: No PFSH Medical History Multiple lipomas Essential hypertension Syncope and collapse Migraine GERD (gastroesophageal reflux disease) Back pain Surgical History History of excision of mass History of colonoscopy (~2010) History of appendectomy Family History Father Heart disease Myocardial infarction Mother Hypertension DVT (deep venous thrombosis) Social History Smoking Status: Never smoker alcohol intake: current substance use type: does not use ROS Const Const: Negative for fatigue, weakness, headache(s), daytime sleepiness or difficulty sleeping ENT ENT: Negative for headache(s), dizziness or Nosebleed/epistaxis Cardio Chest Pain: No Palpitations: No Edema: None Resp Respiratory: Negative for SOB with activity, SOB at rest, SOB orthopneaundefinedSOB lying down or Cough GI GI: Negative nausea, vomiting or heartburn Neuro Neuro: Negative for dizziness, lightheadedness, near syncope, headache(s) or weakness Endo Endo: Negative for fatigue Cardiology Exam Const Appearance: cooperative, healthy appearing, comfortable, no acute distress and well developed Orientation: alert, awake and oriented x3 Head Head: normal to inspection Ears: hearing grossly normal bilaterally Nose: external nose normal Face and Sinus: face symmetric Mouth: oral mucosae normal, lip normal and moist mucous membranes Eyes General: appearance normal, both eyes and all related structures Eyelids: eyelids normal Conjunctivae: conjunctivae normal Pupils: PERRL EOM: EOM intact bilaterally Neck Neck: normal visual inspection and trachea midline; Negative no JVD Carotids: Negative bruit Chest Chest inspection: normal inspection of the chest Auscultation: Bilateral: Clear to Auscultation Cardio Palpation: normal PMI Rate: regular rate Rhythm: regular rhythm Heart sounds: S1 normal and S2 normal; Negative rub, gallop or murmur GI GI: soft, no hepatosplenomegaly and bowel sounds present Neuro General: patient alert, patient awake, patient oriented x3 and CN's II-XI intactbilaterally Extremities Pulses: Normal: Right Posterior Tibial Pulse, Left Posterior Tibial Pulse, RightRadial Pulse and Left Radial Pulse Lower Extremity Edema: None: Bilateral Psych Psychological: normal affect Supplemental Info Supplemental Information Echocardiogram 11/30/2022: The estimated ejection fraction is 60 %. Moderate (2+) mitral valve insufficiency. ? Stress test 01/18/2023: Normal exercise myocardial perfusion stress test at a high workload Preserved ejection fraction. Labs: No Data to Display Diagnostics: Pacemaker Procedure Note Pulmonary: No Data to Display Past Visits: Cardiology Visit 12/15/24 Assessment and Plan Assessment and Plan (1) Syncope and collapse: Status: Acute Plan: Pt has not had an further recurrence, and at this time he request that his loop recorder be explanted and we will oblige. This will be arranged. (2) Essential hypertension: Status: Acute Plan: Blood pressure is not very adequately controlled. I would recommend that we increase it to 10 mg a day on the lisinopril. Medications: Changed From lisinopril 5 mg PO DAILY 90 tabs 3RF To lisinopril 10 mg PO DAILY 90 tabs 3RF Refilled lisinopril 5 mg PO DAILY 90 tabs 3RF Plan Details Follow Up: 15 Months (mmm) Coding Level of Care Code Off vis,est,level 3 Diagnoses Syncope and collapse R55 Essential hypertension I10 Coding Level of Care Code Off vis,est,level 3 Diagnoses Syncope and collapse R55 Essential hypertension I10 Clinical Quality Measures Falls Risk Screening/Assistive Devices Have you fallen in the past year?: No 12/15/24 1044 D> Date _ Elias Grimm MD Cosigner Signature: Date (if applicable) CC: MATERIAL EXPEDITER-Brooke Moran ~ [facility]05-13-2025 Progress note Author Elias Grimm [facility] Note Date/Time December 15, 2024 10:44 am [facility] [address] [place] [address]. [address] [place] [address] OFFICE VISIT Date of Service: 12/15/24 MR#: [id number] Acct: [id number] Name: EFE ARENAS Rep #: [id number] : 1960 Provider: Dr. Sedrick Grimm MD Age/Sex: 64/M Location: [facility] Status: Signed HPI HPI History of Present Illness Details: Efe Arenas is a 64 year old that presents here today for a hospital followup. He had previously had a history of recurrent syncope eventually evaluated with an event monitor and then an implantable loop recorder. He has had this for least 2 years he has not had any events on this and at this time he requestswhether we can remove it. He has had only occasional dizziness no presyncope orsyncope no neck arm or jaw discomfort suggest angina. He has been compliant with all his medications including his blood pressure medications. His physicalexam today is unremarkable. Intake Vital Signs 10/21/23 10:41 12/15/24 10:21 Height 6 ft 6 in 6 ft 6 in Weight: 226 lb BMI 26.1 BP 136/85 H Blood Pressure Location Lt brachial Position Sitting Respiration 14 Pulse 80 Pulse Source Monitor Intake Visit Reasons: 1 Y FU Car Shagger Required: No Accompanied by: Self Is patient in pain?: No Allergies adhesive tape Allergy (Mild, Verified 12/15/24 10:23) blistering Iodinated Contrast Media (Iodinated Contrast- Oral and IV Dye) Adverse Reaction (Mild, Verified 12/15/24 10:23) GI upset peppers Allergy (Mild, Uncoded 12/15/24 10:23) Abd cramps/diarrhea Medications ?Medication ?Instructions ?Recorded ?Confirmed ?Type glucosamine KYb-xbc-hjewobennep 1 tab PO DAILY 9 12/15/24 History 500 mg-167 mg-400 mg tablet lisinopril 10 mg tablet 10 mg PO DAILY #90 tabs 12/0312/15/24 Rx Have you fallen in the past year?: No PFSH Medical History Multiple lipomas Essential hypertension Syncope and collapse Migraine GERD (gastroesophageal reflux disease) Back pain Surgical History History of excision of mass History of colonoscopy (~2010) History of appendectomy Family History Father Heart disease Myocardial infarction Mother Hypertension DVT (deep venous thrombosis) Social History Smoking Status: Never smoker alcohol intake: current substance use type: does not use ROS Const Const: Negative for fatigue, weakness, headache(s), daytime sleepiness or difficulty sleeping ENT ENT: Negative for headache(s), dizziness or Nosebleed/epistaxis Cardio Chest Pain: No Palpitations: No Edema: None Resp Respiratory: Negative for SOB with activity, SOB at rest, SOB orthopneaundefinedSOB lying down or Cough GI GI: Negative nausea, vomiting or heartburn Neuro Neuro: Negative for dizziness, lightheadedness, near syncope, headache(s) or weakness Endo Endo: Negative for fatigue Cardiology Exam Const Appearance: cooperative, healthy appearing, comfortable, no acute distress and well developed Orientation: alert, awake and oriented x3 Head Head: normal to inspection Ears: hearing grossly normal bilaterally Nose: external nose normal Face and Sinus: face symmetric Mouth: oral mucosae normal, lip normal and moist mucous membranes Eyes General: appearance normal, both eyes and all related structures Eyelids: eyelids normal Conjunctivae: conjunctivae normal Pupils: PERRL EOM: EOM intact bilaterally Neck Neck: normal visual inspection and trachea midline; Negative no JVD Carotids: Negative bruit Chest Chest inspection: normal inspection of the chest Auscultation: Bilateral: Clear to Auscultation Cardio Palpation: normal PMI Rate: regular rate Rhythm: regular rhythm Heart sounds: S1 normal and S2 normal; Negative rub, gallop or murmur GI GI: soft, no hepatosplenomegaly and bowel sounds present Neuro General: patient alert, patient awake, patient oriented x3 and CN's II-XI intactbilaterally Extremities Pulses: Normal: Right Posterior Tibial Pulse, Left Posterior Tibial Pulse, RightRadial Pulse and Left Radial Pulse Lower Extremity Edema: None: Bilateral Psych Psychological: normal affect Supplemental Info Supplemental Information Echocardiogram 11/30/2022: The estimated ejection fraction is 60 %. Moderate (2+) mitral valve insufficiency. ? Stress test 01/18/2023: Normal exercise myocardial perfusion stress test at a high workload Preserved ejection fraction. Labs: No Data to Display Diagnostics: Pacemaker Procedure Note Pulmonary: No Data to Display Past Visits: Cardiology Visit 12/15/24 Assessment and Plan Assessment and Plan (1) Syncope and collapse: Status: Acute Plan: Pt has not had an further recurrence, and at this time he request that his loop recorder be explanted and we will oblige. This will be arranged. (2) Essential hypertension: Status: Acute Plan: Blood pressure is not very adequately controlled. I would recommend that we increase it to 10 mg a day on the lisinopril. Medications: Changed From lisinopril 5 mg PO DAILY 90 tabs 3RF To lisinopril 10 mg PO DAILY 90 tabs 3RF Refilled lisinopril 5 mg PO DAILY 90 tabs 3RF Plan Details Follow Up: 15 Months (mmm) Coding Level of Care Code Off vis,est,level 3 Diagnoses Syncope and collapse R55 Essential hypertension I10 Coding Level of Care Code Off vis,est,level 3 Diagnoses Syncope and collapse R55 Essential hypertension I10 Clinical Quality Measures Falls Risk Screening/Assistive Devices Have you fallen in the past year?: No 12/15/24 1044 <Electronically signed by Elias Montero> Date _ Elias Grimm MD Cosigner Signature: Date (if applicable) CC: MATERIAL EXPEDITER-Brooke Moran ~ [facility] Work Phone: 1(799) 362-189207-21-2023 History and physical note Author Elias Grimm [facility] February 22, 2023 8:59am Note Date/Time February 21, 2023 2:55 pm [facility] Medical Records Department [address] [place] [address] History & Physical Exam 02/21/23 1446 MR#: [id number] Acct: [id number] Name: EFE ARENAS Rep #:[id number] : 1960 62 From: Elias Grimm MD PCP: JENNIFER Villagomez [place] [facility] [place] [facility] History and Physical Date of Admission: 03/04/23 Efe Arenas is a 62 year old who presents to the cardiac cath lab manager today forplacement of a loop recorder. Patient was admitted to the hospital for synocpe on 11/30/2022 and discharged home the following day. Patient does have a history of vasovagal syncope that was approximately 20 years ago. At that time, he did have a positive tilt test in which he had significant sinus pauses. He has beenon metoprolol since then. Cardiology was consulted. He did have an echocardiogram done which demonstrated an ejection fraction of 60% with moderatemitral valve insufficiency. A 30-day event monitor was ordered on an outpatientbasis. It was also recommended that he undergo a stress test on an outpatient basis. Patient notes that on the day that he was admitted to the hospital he had several syncopal episodes prior to coming in. He feels that he had approximately 5 syncopal episodes. He was lightheaded dizzy and diaphoretic prior to the syncopal episodes. He has not had any since that time. There was some concern that it could be vasovagal related with since he does have a history of this. As of now his 30-day event monitor has not demonstrated anything significant. He does not have any chest pain. He does not have any worsening shortness of breath. He does not have any palpitations. He has not had any further lightheadedness or dizziness. Intake Vital Signs See EMR Allergies See EMR Medications See EMR PFS Medical History Back pain GERD (gastroesophageal reflux disease) Migraine Syncope and collapse Surgical History History of appendectomy History of colonoscopy (~2010) Family History Father Heart disease Myocardial infarctionMother Hypertension DVT (deep venous thrombosis) Social History Smoking Status: Never smoker alcohol intake: current substance use type: does not use ROS Const Const: Negative for fatigue, weakness, headache(s), frequent falls, excessive sweating, weight gain or weight loss Eyes Eyes: Negative for blind spots, loss of peripheral vision, transient loss of vision, blurry vision, change in vision or double vision ENT ENT: Negative for headache(s), dizziness, tinnitus, Nosebleed/epistaxis or balance problems Cardio Chest Pain: No Palpitations: No Edema: None Muscle aches with walking: None Resp Respiratory: Negative for SOB with activity, SOB at rest, SOB orthopnea\SOB lying down or Cough GI GI: Negative nausea, vomiting, heartburn, bloating, vomiting blood/hematemesis, bright, red blood in stools or black,tarry stools : Negative for hematuria Musc Musc: Negative for muscle aches/ myalgia, muscle weakness, joint pain or balanceproblems Skin Skin: Negative rash or wounds Neuro Neuro: Positive for syncope; Negative for dizziness, lightheadedness, near syncope, orthostatic symptoms, frequent falls, headache(s), weakness, confusion, memory loss, restless legs, blurry vision or double vision Nathan Hematologic/Lymphatic: Negative for easy bleeding or easy bruising Endo Endo: Negative for fatigue, cold intolerance, heat intolerance or excessive sweating Psych Psych: Negative for anxiety or depression Allergy Allergy/Immunology: Negative for rash Cardiology Exam Const Appearance: cooperative, healthy appearing, comfortable, no acute distress and well developed Orientation: alert, awake and oriented x3 Head Head: normal to inspection Ears: hearing grossly normal bilaterally Nose: external nose normal Face and Sinus: face symmetric Mouth: oral mucosae normal, lip normal and moist mucous membranes Eyes General: appearance normal, both eyes and all related structures Eyelids: eyelids normal Conjunctivae: conjunctivae normal Pupils: PERRL EOM: EOM intact bilaterally Neck Neck: normal visual inspection and trachea midline; Negative no JVD Carotids: Negative bruit Chest Chest inspection: normal inspection of the chest Auscultation: Bilateral: Clear to Auscultation Cardio Palpation: normal PMI Rate: regular rate Rhythm: regular rhythm Heart sounds: S1 normal and S2 normal; Negative rub, gallop or murmur GI GI: soft, no hepatosplenomegaly and bowel sounds present Neuro General: patient alert, patient awake, patient oriented x3 and CN's II-XI intactbilaterally Extremities Pulses: Normal: Right Posterior Tibial Pulse, Left Posterior Tibial Pulse, RightRadial Pulse and Left Radial Pulse Lower Extremity Edema: None: Bilateral Psych Psychological: normal affect Supplemental Info Supplemental Information Echocardiogram 2022: The estimated ejection fraction is 60 %. Moderate (2+) mitral valve insufficiency. Stress test 01/18/2023: Exercise myocardial perfusion stress test. 62-year-old man with a history of syncope Stress protocol: Resting EKG demonstrates normal sinus rhythm with a rate of 60 bpm resting bloodpressure is 138/78 mmHg. The patient exercised according to the regular Pepito protocol for a total duration of 10 minutes and 30 seconds attaining a maximum heart rate of 148 bpm which was 93% of maximum predicted heart rate; the maximumworkload was 13.4 metabolic equivalents. At rest there were no ST or T wave changes noted to suggest ischemia and at peak exercise upsloping ST changes onlywere noted which did not meet the criteria for ischemia. No clinical angina wasnoted the test was terminated due to the target heart rate being achieved/fatigue. The peak blood pressure was 160/78 mmHg. Rate-pressure product was 23,600. Myocardial perfusion protocol. 14.6 mCi of technetium 99m sestamibi was injected at rest. The patient exercised according to regular Pepito protocol for total duration of 10 minutes and 30 seconds and at peak exercise 44 point mCi of technetium 99m sestamibi wasinjected stress images were obtained stress and rest images were reconstructed in comparing the short axis vertical long and horizontal long axis. Gated images were also obtained. Perfusion SPECT analysis: Review of the stress images demonstrate normal uptake of tracer noted in all areas of the myocardium. The resting images similarly demonstrate normal uptakeof tracer noted in all areas of the myocardium. No areas of reversibility are noted to suggest ischemia no previous infarct was noted. Gated SPECT analysis: The gated ejection fraction is 72%. Conclusion: Normal exercise myocardial perfusion stress test at a high workload Preserved ejection fraction. ? Assessment and Plan Assessment and Plan (1) Syncope and collapse: Status: Acute Plan: Patient's 30-day event monitor did not demonstrate anything significant however with the frequency of his syncopal events the day that he came to the hospital this is extremely concerning. Patient will proceed with loop recorder placementto further assess his heart rhythm and rate. He is agreeable with this. 02/22/23 0859 <Electronically signed by Elias Grmim MD> Cosigner Signature (if applicable): 02/21/23 8935 <Electronically signed by Leslie RODRIGUEZ> CC: JENNIFER Calvert; JENNIFER Moran; Dr. Elias Grimm MD~ Signed [facility] Work Phone: [phone]) 904-702206-06-2023 Hospital Discharge instructionsAmbulatory Orders* Loop Recorder Time Frame: 01/08/23, Location: Determined By Patient [facility] Work Phone: [phone]) 939-348504-29-[address] Martinez [facility] December 01, 2022 10:25am Note Date/Time December 01, 2022 10: 25am [facility] Medical Records Department [address] [place] [address] Progress Note - Hospitalist 12/01/22 1021 MR#: [id number] Acct: [id number] Name: EFE ARENAS Rep #:[id number] : 1960 62 From: Ramone Martinez DO PCP: Dr. Ramone Carrera, DO Status:ADM ROBERT Location: [place] [address] Reason for Visit Reason for Visit: Diagnoses Syncope and collapse (11/30/22) Subjective Subjective Patient was seen and examined today, he has had no episodes of syncope since he was admitted to the floor. Patient has not had any episodes of bradycardia either. I spent quite a bit of time talking with the patient's and patient, the states that the patient has been on metoprolol for approximately 25 years, she would be reluctant to have this medicine stopped. I conveyed this tocardiology today. I have canceled the patient's carotid duplex studies, I do not feel he needs the studies and they do not do them on the weekends here at the hospital. At the time of this dictation, patient is scheduled for an echocardiogram and a stress test today. I let the patient's and the patient know that he might be discharged with a30-day event monitor prescription. Objective Data Objective Data Vital Signs: Vital Signs Temp Pulse Resp BP Pulse Ox O2 Del Method 97.0 F L 67 16 139/85 H 98 Room Air 12/01/22 07:59 12/01/22 07:59 12/01/22 07:59 12/01/22 07:59 12/01/22 07:59 12/01/22 08:53 Oxygen Delivery Method Room Air Weight: 103.3 kg Body Mass Index (BMI) 26.3 Intake & Output: Intake and Output for Last 24 Hours 11/29/22 11/30/22 12/01/22 23:59 23:59 23:59 Intake Total 1250 / 1250 0 / 0 Output Total 650 / 650 Balance 1250 / 1250 -650 / -650 Lab / Micro Data Result Diagrams: 11/30/22 15:50 11/30/22 15:50 Labs: Laboratory Results - last 24 hr 11/30/22 15:50: WBC 8.5, RBC 4.55 L, Hgb 14.6, Hct 41.5, MCV 91.2, MCH 32.1 H, MCHC 35.2, RDW Std Deviation 44.4 H, RDW Coeff of Reanna 13.3, Plt Count 247, MPV 10.3, Immature Gran % (Auto) 0.400, Neut % (Auto) 51.2, Lymph % (Auto) 32.3, Stoddard % (Auto) 11.5 H, Eos % (Auto) 3.9, Baso % (Auto) 0.7, Absolute Neuts (auto)4.3, Absolute Lymphs (auto) 2.73, Nucleated RBC % 0 11/30/22 15:50: Sodium 138, Potassium 3.6, Chloride 109 H, Carbon Dioxide 22.0, Anion Gap 7, BUN 18, Creatinine 1.14, Estim Creat Clear Calc 68.05, Est GFR (MDRD) Af Amer 84, Est GFR (MDRD) Non-Af 69, BUN/Creatinine Ratio 15.8, Glucose 119 H, Calcium 8.7, Total Bilirubin 0.80, Direct Bilirubin 0.19, AST 20, ALT 25,Alkaline Phosphatase 43 L, Troponin I High Sens 4, Total Protein 6.8, Albumin 3.6, Globulin 3.2, Lipase 27 11/30/22 15:50: B-Natriuretic Peptide 23.3 11/30/22 18:10: Troponin I High Sens 4 12/01/22 00:00: Troponin I High Sens 4 12/01/22 07:20: Phosphorus 3.0, Magnesium 2.2, TSH 1.28 Radiography Diagnostic Testing: Radiology Impression Chest X-Ray 11/30/22 16:20 IMPRESSION: Normal x-ray examination of the chest. Electronically Signed: Roger Cruz MD at 16:35 EDT , Physical Exam Const alert, oriented x3, no apparent distress, average body habitus and healthy appearing General Appearance: cooperative, well kempt and well developed Orientation / Consciousness: awake, oriented to person, oriented to place and oriented to time HEENT normocephalic and moist oral mucous membranes Eyes PERRL, EOMs intact bilaterally and conjunctivae normal Neck supple, no JVD, thyroid normal and no carotid bruits General: trachea midline Resp normal respiratory effort, no retractions, no use of accessory muscles and clearto auscultation bilaterally Auscultation: Negative for rales, rhonchi or wheezes Cardio regular rate, regular rhythm, S1 normal heart sound, S2 normal heart sound, no murmurs, no rub and no gallops GI normal to inspection, nondistended, normoactive bowel sounds, soft to palpation,non-tender and non-distended Extremity no clubbing, cyanosis or edema Skin no rashes or lesions noted General Skin Exam: no breakdown Neuro oriented x3, CN's II-XII intact bilaterally, moves all extremities, no focal motor deficits and no sensory deficits noted Sensorium / Orientation: awake, alert, oriented to person, oriented to place andoriented to time Speech: speech normal Psych affect normal Assessment & Plan Assessment/Plan (1) Syncope: PLAN: Plan 1. Syncope-probably secondary to bradycardia, etiology of the bradycardia is unknown at this time, possibilities include vasovagal. Patient will continue tracey monitored, he will have a stress test and echocardiogram performed today #2 sinus pause-exact etiology unclear, it is possible patient could have been nauseated causing sinus pause and syncope, again cardiology will see the patientin consultation today, he will have an echocardiogram and a stress test. Total clinical time spent by myself addressing the patient's medical issues, reviewing all of his data, and talking with the patient's care team: 26 minutes Charges/Coding Visit Charges Inpatient E&M: 70721 Subs Hosp L1 12/01/22 1025 <Electronically signed by Ramone Martinez DO> Cosigner Signature (if applicable): CC: ~ Signed [facility] Work Phone: 1([phone]) 470-291104-28-[address] Callejas [facility] November 30, 2022 7:47pm Note Date/Time November 30, 2022 4:0 6pm [facility] Medical Records Department [address] [place] [address] Emergency Department Summary 11/30/22 MR#: [id number] Acct: [id number] Name: EFE ARENAS Rep #:[id number] : 1960 62 From: Carlos Callejas DO PCP: Dr. Ramone Carrera DO Status:ADM ROBERT Location: [address] History of Present Illness Chief Complaint: Syncope Narrative Narrative: 62-year-old male presenting with syncopal episodes. He had 4 episodes today prior to evaluation. Patient had a syncopal episode in the ER and there was a CODE BLUE called. Patient awoke a little dazed but alert and oriented. He states that he had 1 episode of syncope today at home, [address] in the car and when which she had to pullman clerk. He is unsure how long he was unconscious. His significant other is with him and states that he had nearly syncope while coming into the emergency room. Patient reports a history of vasovagal syncope which was diagnosed in [address] [facility]. He states he had a classic tilt table test. He can tell you when it is about to come on he feels like there is a pressure pulling down from his epigastrium downto his stomach and if he sits down he will be fine but if he stands up or moves he will faint. Patient did not fall or hit his head today. Patient is having some epigastric burning/dyspepsia which started after eating long Aamir Latoya today. Other than the syncope he does not of a cardiac history. Patient does admit that he has been on metoprolol long-term and his it has controlled his syncopal episodes. He has not had a syncopal event in years. [facility] Medical History Back pain GERD (gastroesophageal reflux disease) HTN (hypertension) Migraine Syncope and collapse Home Medications glucosamine PTj-alb-cfojmqpzzso 500 mg-167 mg-400 mg tablet 1 tab PO DAILY 02/16/19 [History Last Taken Unknown] metoprolol tartrate 25 mg tablet 25 mg PO DAILY HTN 11/30/22 [History Last Taken Unknown] Allergy/AdvReac Type Severity Reaction Status Date / Time adhesive tape Allergy Mild blistering Verified 11/30/22 15:33 Iodinated Contrast Media AdvReac Mild GI upset Verified 11/30/22 15:33 [Iodinated Contrast- Oral and IV Dye] Family History Father Heart disease Myocardial infarction Mother Hypertension DVT (deep venous thrombosis) Surgical History History of appendectomy History of colonoscopy (~2010) Social History Smoking Status: Never smoker alcohol intake: current substance use type: does not use ROS ROS ED Constitutional Constitutional ED: Denies chills, fever(s) or sweats Eyes Eyes: Denies blurry vision or change in vision ENT ENT ED: Denies ear pain or sore throat Cardiovascular Cardiovascular: Reports other Details: Syncopal episodes x5 ; Denies chest pain, palpitations or racing heartbeat Respiratory/Chest Respiratory/Chest: Denies cough, dyspnea or sputum Gastrointestinal Gastrointestinal: Reports nausea, vomiting and other Details: Dyspepsia ; Denies abdominal pain, constipation or diarrhea Genitourinary Genitourinary ED: Denies dysuria, hematuria or urinary frequency Musculoskeletal Musculoskeletal: Denies arthralgias, myalgias or neck pain Integumentary Denies abscess, Abrasions or rash Neurologic Neurologic: Denies headache(s), paresthesias or weakness Psychiatric Psychiatric: Denies anxiety, depression, suicidal ideation or suicidal thoughts Endocrine Endocrinology: Denies polydipsia or polyuria EXAM Physical Exam Const Vital Signs: 11/30/22 15:29 11/30/22 16:03 11/30/22 16:18 Temperature 97 F L Temperature Source Temporal Pulse Rate 83 Respiratory Rate 18 Respiratory Effort Normal Non-Labored Respiratory Pattern Normal Blood Pressure 130/78 H Blood Pressure Mean 95 Pulse Ox 98 Oxygen Delivery Method Room Air Room Air 11/30/22 17:00 11/30/22 18:00 Temperature Temperature Source Pulse Rate 77 69 Respiratory Rate 13 20 H Respiratory Effort Respiratory Pattern Blood Pressure 146/69 H 145/75 H Blood Pressure Mean 94 98 Pulse Ox 93 97 Oxygen Delivery Method Room Air Room Air Positive well nourished General Appearance ED: NAD; Negative for pallor HEENT Reports moist mucous membranes Eyes PERRL and EOMs intact bilaterally Chest Wall inspection of chest normal and palpation of chest normal Resp normal respiratory effort and clear to auscultation bilaterally Auscultation: Negative for rales, rhonchi or wheezes Cardio regular rate and regular rhythm GI normal to inspection, nondistended, normoactive bowel sounds Extremity normal to inspection Neuro oriented x3 and CN's II-XII intact bilaterally Motor Exam: strength 5/5 throughout Psych mental status grossly normal Skin no rashes or lesions noted General Skin Exam: Negative for jaundice or pallor MDM MDM MDM Narrative Medical decision making narrative: Patient presenting with syncope. He does have a history of vasovagal syncope however its been since 2000 that he had an episode like this. He states that heis never had several episodes of syncope in a row. Today he had his fifth syncopal event in the ER. A CODE BLUE was called. Patient had a sinus pause ontelemetry. I suspect the patient was vasovagal laying as he was having extreme nausea and vomiting. After given Zofran he has not had another event. Patient was having some dyspepsia as well. Differential includes vasovagal syncope, electrolyte abnormality, dehydration, ACS, pneumonia. EKG was performed and on my interpretation there is a normal sinus rhythm with a ventricular rate of 67 bpm without sign of ischemic change or ectopy. AZ interval 176 ms, QRS 90 ms, QTc 422 ms. Chest x-ray my interpretation shows no acute cardiopulmonary process. Radiologist services and agrees. CBC and CMP are unremarkable. High-sensitivity troponin is 4. Discussed with the hospitalist for admission given the multiple syncopal episodes. She recommended that I speak with Dr. Leoregarding the syncope and presents because he did have a sinus pause. Dr. Leo states that he will talk to Dr. Grimm and then get back with me. Dr. Camarena stated that he felt comfortable keeping the patient here at the hospital. Discussed with the hospitalist for admission. Impression: 1. Nausea/vomiting 2. Syncope Lab Data Attestation: I reviewed the patient's lab results. Labs: Laboratory Results - last 24 hr 11/30/22 11/30/22 11/30/22 15:50 15:50 15:50 WBC 8.5 RBC 4.55 L Hgb 14.6 Hct 41.5 MCV 91.2 MCH 32.1 H MCHC 35.2 RDW Std Deviation 44.4 H RDW Coeff of Reanna 13.3 Plt Count 247 MPV 10.3 Immature Gran % (Auto) 0.400 Neut % (Auto) 51.2 Lymph % (Auto) 32.3 Stoddard % (Auto) 11.5 H Eos % (Auto) 3.9 Baso % (Auto) 0.7 Absolute Neuts (auto) 4.3 Absolute Lymphs (auto) 2.73 Nucleated RBC % 0 Sodium 138 Potassium 3.6 Chloride 109 H Carbon Dioxide 22.0 Anion Gap 7 BUN 18 Creatinine 1.14 Estim Creat Clear Calc 68.05 Est GFR (MDRD) Af Amer 84 Est GFR (MDRD) Non-Af 69 BUN/Creatinine Ratio 15.8 Glucose 119 H Calcium 8.7 Total Bilirubin 0.80 Direct Bilirubin 0.19 AST 20 ALT 25 Alkaline Phosphatase 43 L Troponin I High Sens 4 B-Natriuretic Peptide 23.3 Total Protein 6.8 Albumin 3.6 Globulin 3.2 Lipase 27 11/30/22 18:10 WBC RBC Hgb Hct MCV MCH MCHC RDW Std Deviation RDW Coeff of Reanna Plt Count MPV Immature Gran % (Auto) Neut % (Auto) Lymph % (Auto) Stoddard % (Auto) Eos % (Auto) Baso % (Auto) Absolute Neuts (auto) Absolute Lymphs (auto) Nucleated RBC % Sodium Potassium Chloride Carbon Dioxide Anion Gap BUN Creatinine Estim Creat Clear Calc Est GFR (MDRD) Af Amer Est GFR (MDRD) Non-Af BUN/Creatinine Ratio Glucose Calcium Total Bilirubin Direct Bilirubin AST ALT Alkaline Phosphatase Troponin I High Sens 4 B-Natriuretic Peptide Total Protein Albumin Globulin Lipase Radiography Diagnostic Testing: Clinical Impression(s) from Imaging Studies Chest X-Ray 11/30/22 16:20 IMPRESSION: Normal x-ray examination of the chest. Electronically Signed: Roger Cruz MD at 16:35 EDT , Discharge Plan Triage Chief Complaint: Syncope ED Provider: Carlos Callejas Dx/Rx/DC Orders Primary Care Provider: Ramone Carrera What to do if you have Problems For any increased pain, shortness of breath, bleeding, nausea or vomiting, chestpain, or any unexpected problems, contact your Primary Care Provider. Call [facility] ([phone]) or report to the closest Emergency Room. Call 911 if necessary. 11/30/221946 <Electronically signed by Carlos Callejas DO> Cosigner Signature (if applicable): CC: Dr. Ramone Carrera DO ~ Signed [facility] Work Phone: 1(880) 304-382704-28-2023 History and physical note Author Dr. Alves [facility] November 30, 2022 7:23pm Note Date/Time November 30, 2022 6:5 6pm [facility] Medical Records Department [address] [place] [address] H&P Exam - Hospitalist 11/30/22 1855 MR#: [id number] Acct: [id number] Name: EFE ARENAS Rep #:[id number] : 1960 62 From: Blanca Alves DO PCP: Dr. Ramone Carrera DO Status:ADM ROBERT Location: [place] [address] HPI - General General Date of Admission: 11/30/22 Date of Service: 11/30/22 Chief Complaint: Syncope HPI Narrative EFE ARENAS, is a 62 M who presented with recurrent syncopal episodes today. Patient has a documented history of vasovagal syncope that was diagnosedabout [address] [facility] with a significant positive tilt table test. Patient states he has not had an episode in 25 years and has prodromal symptoms that allow him to compensate for these episodes. Today he ate lunch at [employer] and developed some dyspepsia following. Since that point he has had 6 episodes of syncope with the longest episode lasting approximately 2 minutes per his . He had about 30 seconds of confusion postsyncopal episode with each event. His last event here demonstrated asystole with a long pause on telemetry with return of sinus rhythm fairly quickly. At the time of my evaluation patient feels almost back to his baseline only complaining of some mild discomfort in the epigastric area. He was fine up until his first syncopal episode today which happened in the car and now feels fine again. He states he has had dyspepsia previously and had not had syncopal episode so he does not feel that there is a correlation between his dyspepsia and his syncopal episodes at this time. Vital signs at presentation demonstrated temperature of 97, heart rates 83, blood pressure 130/78, respiratory rate 18, oxygen saturation 98% on room air. CBC is unremarkable. Differential does show a monocytosis. Chemistry panel is unremarkable. Nonfasting glucose was 119. Liver functions are normal. Initialtroponin was 4 and delta troponin was 4. BNP is 23.3. Lipase was 27. Chest x-ray is unremarkable. EKG shows normal sinus rhythm with normal intervals and noST-T wave changes concerning for acute ischemia. [facility] Medical History Back pain GERD (gastroesophageal reflux disease) HTN (hypertension) Migraine Syncope and collapse Home Medications glucosamine [id number] 500 mg-167 mg-400 mg tablet 1 tab PO DAILY 02/16/19 [History Last Taken Unknown] metoprolol tartrate 25 mg tablet 25 mg PO DAILY HTN 11/30/22 [History Last Taken Unknown] Allergy/AdvReac Type Severity Reaction Status Date / Time adhesive tape Allergy Mild blistering Verified 11/30/22 15:33 Iodinated Contrast Media AdvReac Mild GI upset Verified 11/30/22 15:33 [Iodinated Contrast- Oral and IV Dye] Family History Father Heart disease Myocardial infarction Mother Hypertension DVT (deep venous thrombosis) Surgical History History of appendectomy History of colonoscopy (~2010) Social History Smoking Status: Never smoker alcohol intake: current substance use type: does not use ROS Constitutional Constitutional: Denies anorexia, change in weight, chills, fatigue, fever(s), malaise, night sweats, weakness or other Eyes Eyes: Denies blurry vision, change in eye color, change in vision, discharge from eye(s), double vision, erythema, eye pain, loss of vision or other ENT HEENT: Denies abnormal hearing, dysphagia, ear pain, epistaxis, headache(s), hearing loss, nasal congestion, nasal discharge, post nasal drip, sinus pressure, sore throat or other Cardiovascular Cardiovascular: Reports syncope; Denies chest pain, claudication, dyspnea on exertion, edema, lightheadedness, orthopnea, palpitations, paroxysmal nocturnal dyspnea, rapid heart rate or other Respiratory/Chest Respiratory/Chest: Denies cough, dyspnea, excessive phlegm production, hemoptysis, productive cough, shortness of breath at rest, shortness of breath with exertion, wheezing or other Gastrointestinal Gastrointestinal: Reports dyspepsia and vomiting; Denies abdominal pain, coffee ground emesis, constipation, diarrhea, hematemesis, hematochezia, loose stools, melena, nausea or other Genitourinary Genitourinary: Denies burning urination, difficulty urinating, dysuria, hematuria, nocturia, urinary frequency, urinary hesitancy, urinary incontinence,urinary urgency or other Musculoskeletal Musculoskeletal: Denies arthralgias, back pain, joint pain, joint stiffness, joint swelling, myalgias, neck pain or other Neurologic Neurologic: Reports syncope; Denies abnormal gait, abnormal speech, confusion, disequilibrium, dizziness, focal weakness, headache(s), numbness, paresthesias, seizure-like activity, seizures, tingling, tremor(s) or other Psychiatric Psychiatric: Denies anxiety, depression, homicidal ideation, suicidal ideation or other Endocrine Endocrinology: Denies change in body appearance, cold intolerance, excessive sweating, heat intolerance, polydipsia, polyuria or other Hematologic/Lymphatic Hematologic/Lymphatic: Denies anemia, easy bleeding, easy bruising, lymphadenopathy or other Allergic/Immunologic Allergic/Immunologic: Denies rhinitis, hives, eczemia, asthma or other Vital Signs Vital Signs Vital Signs: 11/30/22 15:29 11/30/22 16:03 11/30/22 16:18 Temperature 97 F L Temperature Source Temporal Pulse Rate 83 Respiratory Rate 18 Respiratory Effort Normal Non-Labored Respiratory Pattern Normal Blood Pressure 130/78 H Blood Pressure Mean 95 Pulse Ox 98 Oxygen Delivery Method Room Air Room Air 11/30/22 17:00 11/30/22 18:00 Temperature Temperature Source Pulse Rate 77 69 Respiratory Rate 13 20 H Respiratory Effort Respiratory Pattern Blood Pressure 146/69 H 145/75 H Blood Pressure Mean 94 98 Pulse Ox 93 97 Oxygen Delivery Method Room Air Room Air Weight Weight: 103 kg Body Mass Index (BMI) 33.5 Physical Exam Const alert, oriented x3, no apparent distress, average body habitus, healthy appearing and well nourished Constitutional Narrative: Upper middle-aged white male sitting up in bed, at bedside, patient appearscomfortable and nontoxic, states he is hungry and asking for something to eat General Appearance: cooperative HEENT normocephalic, head/scalp atraumatic, hearing grossly normal bilaterally and moist oral mucous membranes HEENT Narrative: Mallampati 2, no thrush, dentition is good for age Eyes PERRL, EOMs intact bilaterally and conjunctivae normal Eyes Narrative: No scleral icterus Neck no lymphadenopathy, supple, no JVD and no carotid bruits Neck Narrative: Trachea midline, no thyroid enlargement Resp normal respiratory effort, no retractions, no use of accessory muscles and clearto auscultation bilaterally Auscultation: Negative for rales, rhonchi or wheezes Cardio regular rate, regular rhythm, S1 normal heart sound, S2 normal heart sound, no murmurs, no rub, no gallops and no clicks GI normal to inspection, nondistended, normoactive bowel sounds, soft to palpation and non-tender Extremity no clubbing, cyanosis or edema Extremity Narrative: 2+ pedal pulses, 2+ radial pulses Skin no rashes or lesions noted, no wounds, skin turgor normal, no jaundice, no petechiae and no mottling Neuro oriented x3, CN's II-XII intact bilaterally, moves all extremities and no focal motor deficits Sensorium / Orientation: awake, alert, oriented to person, oriented to place andoriented to time Speech: speech normal Motor Exam: strength 5/5 throughout Psych affect normal Psych Narrative: Very pleasant, appropriately interactive Results Lab / Micro Data Result Diagrams: 11/30/22 15:50 11/30/22 15:50 Labs: Laboratory Results - last 24 hr 11/30/22 15:50: WBC 8.5, RBC 4.55 L, Hgb 14.6, Hct 41.5, MCV 91.2, MCH 32.1 H, MCHC 35.2, RDW Std Deviation 44.4 H, RDW Coeff of Reanna 13.3, Plt Count 247, MPV 10.3, Immature Gran % (Auto) 0.400, Neut % (Auto) 51.2, Lymph % (Auto) 32.3, Stoddard % (Auto) 11.5 H, Eos % (Auto) 3.9, Baso % (Auto) 0.7, Absolute Neuts (auto)4.3, Absolute Lymphs (auto) 2.73, Nucleated RBC % 0 11/30/22 15:50: Sodium 138, Potassium 3.6, Chloride 109 H, Carbon Dioxide 22.0, Anion Gap 7, BUN 18, Creatinine 1.14, Estim Creat Clear Calc 68.05, Est GFR (MDRD) Af Amer 84, Est GFR (MDRD) Non-Af 69, BUN/Creatinine Ratio 15.8, Glucose 119 H, Calcium 8.7, Total Bilirubin 0.80, Direct Bilirubin 0.19, AST 20, ALT 25,Alkaline Phosphatase 43 L, Troponin I High Sens 4, Total Protein 6.8, Albumin 3.6, Globulin 3.2, Lipase 27 11/30/22 15:50: B-Natriuretic Peptide 23.3 Radiology Impression Chest X-Ray 11/30/22 16:20 IMPRESSION: Normal x-ray examination of the chest. Electronically Signed: Roger Cruz MD at 16:35 EDT , Assessment & Plan Assessment/Plan (1) Syncope: PLAN: Plan Syncope -Patient with 6 episodes of syncope today -Has history of vasovagal syncope diagnosed 25 years ago but has not had an event that has caused a syncopal episode in 25 years since he was diagnosed -He does have prodrome -Monitor on telemetry -Cycle cardiac enzymes -Check stress test -Check echocardiogram -Check carotid Dopplers -Consult cardiology -If work-up here is negative will likely need event monitor at discharge Dyspepsia -Protonix 40 mg daily Hypertension -Continue home metoprolol History of vasovagal syncope -Remote diagnosis 25 years ago at [facility] -Had a markedly positive tilt table at that time but has prodrome and can usually lilly syncope with maneuvers he was instructed to utilize Osteoporosis -Restart glucosamine/chondroitin after discharge DVT prophylaxis -Lovenox CODE STATUS -Full code Charges/Coding Visit Charges Inpatient E&M: 26645 Init Hosp L2 11/30/221922 <Electronically signed by Blanca Alves DO> Cosigner Signature (if applicable): CC: Dr. Blanca Alves DO; Dr. Ramone Carrera DO~ Signed [facility] Work Phone: 1(229) 690-484304-28-[address] Callejas [facility] November 30, 2022 7:47pm Note Date/Time November 30, 2022 4:0 6pm [facility] Medical Records Department [address] [place] [address] Emergency Department Summary 11/30/22 MR#: [id number] Acct: [id number] Name: EFE ARENAS Rep #:[id number] : 1960 62 From: Carlos Callejas DO PCP: Dr. Ramone Carrera, Status:ADM ROBERT Location: [address] History of Present Illness Chief Complaint: Syncope Narrative Narrative: 62-year-old male presenting with syncopal episodes. He had 4 episodes today prior to evaluation. Patient had a syncopal episode in the ER and there was a CODE BLUE called. Patient awoke a little dazed but alert and oriented. He states that he had 1 episode of syncope today at home, [address] in the car and when which she had to pullman clerk. He is unsure how long he was unconscious. His significant other is with him and states that he had nearly syncope while coming into the emergency room. Patient reports a history of vasovagal syncope which was diagnosed in [address] [facility]. He states he had a classic tilt table test. He can tell you when it is about to come on he feels like there is a pressure pulling down from his epigastrium downto his stomach and if he sits down he will be fine but if he stands up or moves he will faint. Patient did not fall or hit his head today. Patient is having some epigastric burning/dyspepsia which started after eating long [employer] today. Other than the syncope he does not of a cardiac history. Patient does admit that he has been on metoprolol long-term and his it has controlled his syncopal episodes. He has not had a syncopal event in years. [facility] Medical History Back pain GERD (gastroesophageal reflux disease) HTN (hypertension) Migraine Syncope and collapse Home Medications glucosamine [id number] 500 mg-167 mg-400 mg tablet 1 tab PO DAILY 02/16/19 [History Last Taken Unknown] metoprolol tartrate 25 mg tablet 25 mg PO DAILY HTN 11/30/22 [History Last Taken Unknown] Allergy/AdvReac Type Severity Reaction Status Date / Time adhesive tape Allergy Mild blistering Verified 11/30/22 15:33 Iodinated Contrast Media AdvReac Mild GI upset Verified 11/30/22 15:33 [Iodinated Contrast- Oral and IV Dye] Family History Father Heart disease Myocardial infarction Mother Hypertension DVT (deep venous thrombosis) Surgical History History of appendectomy History of colonoscopy (~2010) Social History Smoking Status: Never smoker alcohol intake: current substance use type: does not use ROS ROS ED Constitutional Constitutional ED: Denies chills, fever(s) or sweats Eyes Eyes: Denies blurry vision or change in vision ENT ENT ED: Denies ear pain or sore throat Cardiovascular Cardiovascular: Reports other Details: Syncopal episodes x5 ; Denies chest pain, palpitations or racing heartbeat Respiratory/Chest Respiratory/Chest: Denies cough, dyspnea or sputum Gastrointestinal Gastrointestinal: Reports nausea, vomiting and other Details: Dyspepsia ; Denies abdominal pain, constipation or diarrhea Genitourinary Genitourinary ED: Denies dysuria, hematuria or urinary frequency Musculoskeletal Musculoskeletal: Denies arthralgias, myalgias or neck pain Integumentary Denies abscess, Abrasions or rash Neurologic Neurologic: Denies headache(s), paresthesias or weakness Psychiatric Psychiatric: Denies anxiety, depression, suicidal ideation or suicidal thoughts Endocrine Endocrinology: Denies polydipsia or polyuria EXAM Physical Exam Const Vital Signs: 11/30/22 15:29 11/30/22 16:03 11/30/22 16:18 Temperature 97 F L Temperature Source Temporal Pulse Rate 83 Respiratory Rate 18 Respiratory Effort Normal Non-Labored Respiratory Pattern Normal Blood Pressure 130/78 H Blood Pressure Mean 95 Pulse Ox 98 Oxygen Delivery Method Room Air Room Air 11/30/22 17:00 11/30/22 18:00 Temperature Temperature Source Pulse Rate 77 69 Respiratory Rate 13 20 H Respiratory Effort Respiratory Pattern Blood Pressure 146/69 H 145/75 H Blood Pressure Mean 94 98 Pulse Ox 93 97 Oxygen Delivery Method Room Air Room Air Positive well nourished General Appearance ED: NAD; Negative for pallor HEENT Reports moist mucous membranes Eyes PERRL and EOMs intact bilaterally Chest Wall inspection of chest normal and palpation of chest normal Resp normal respiratory effort and clear to auscultation bilaterally Auscultation: Negative for rales, rhonchi or wheezes Cardio regular rate and regular rhythm GI normal to inspection, nondistended, normoactive bowel sounds Extremity normal to inspection Neuro oriented x3 and CN's II-XII intact bilaterally Motor Exam: strength 5/5 throughout Psych mental status grossly normal Skin no rashes or lesions noted General Skin Exam: Negative for jaundice or pallor MDM MDM MDM Narrative Medical decision making narrative: Patient presenting with syncope. He does have a history of vasovagal syncope however its been since 2000 that he had an episode like this. He states that heis never had several episodes of syncope in a row. Today he had his fifth syncopal event in the ER. A CODE BLUE was called. Patient had a sinus pause ontelemetry. I suspect the patient was vasovagal laying as he was having extreme nausea and vomiting. After given Zofran he has not had another event. Patient was having some dyspepsia as well. Differential includes vasovagal syncope, electrolyte abnormality, dehydration, ACS, pneumonia. EKG was performed and on my interpretation there is a normal sinus rhythm with a ventricular rate of 67 bpm without sign of ischemic change or ectopy. AZ interval 176 ms, QRS 90 ms, QTc 422 ms. Chest x-ray my interpretation shows no acute cardiopulmonary process. Radiologist services and agrees. CBC and CMP are unremarkable. High-sensitivity troponin is 4. Discussed with the hospitalist for admission given the multiple syncopal episodes. She recommended that I speak with Dr. Leoregarding the syncope and presents because he did have a sinus pause. Dr. Leo states that he will talk to Dr. Grimm and then get back with me. Dr. Camarena stated that he felt comfortable keeping the patient here at the hospital. Discussed with the hospitalist for admission. Impression: 1. Nausea/vomiting 2. Syncope Lab Data Attestation: I reviewed the patient's lab results. Labs: Laboratory Results - last 24 hr 11/30/22 11/30/22 11/30/22 15:50 15:50 15:50 WBC 8.5 RBC 4.55 L Hgb 14.6 Hct 41.5 MCV 91.2 MCH 32.1 H MCHC 35.2 RDW Std Deviation 44.4 H RDW Coeff of Reanna 13.3 Plt Count 247 MPV 10.3 Immature Gran % (Auto) 0.400 Neut % (Auto) 51.2 Lymph % (Auto) 32.3 Stoddard % (Auto) 11.5 H Eos % (Auto) 3.9 Baso % (Auto) 0.7 Absolute Neuts (auto) 4.3 Absolute Lymphs (auto) 2.73 Nucleated RBC % 0 Sodium 138 Potassium 3.6 Chloride 109 H Carbon Dioxide 22.0 Anion Gap 7 BUN 18 Creatinine 1.14 Estim Creat Clear Calc 68.05 Est GFR (MDRD) Af Amer 84 Est GFR (MDRD) Non-Af 69 BUN/Creatinine Ratio 15.8 Glucose 119 H Calcium 8.7 Total Bilirubin 0.80 Direct Bilirubin 0.19 AST 20 ALT 25 Alkaline Phosphatase 43 L Troponin I High Sens 4 B-Natriuretic Peptide 23.3 Total Protein 6.8 Albumin 3.6 Globulin 3.2 Lipase 27 11/30/22 18:10 WBC RBC Hgb Hct MCV MCH MCHC RDW Std Deviation RDW Coeff of Reanna Plt Count MPV Immature Gran % (Auto) Neut % (Auto) Lymph % (Auto) Stoddard % (Auto) Eos % (Auto) Baso % (Auto) Absolute Neuts (auto) Absolute Lymphs (auto) Nucleated RBC % Sodium Potassium Chloride Carbon Dioxide Anion Gap BUN Creatinine Estim Creat Clear Calc Est GFR (MDRD) Af Amer Est GFR (MDRD) Non-Af BUN/Creatinine Ratio Glucose Calcium Total Bilirubin Direct Bilirubin AST ALT Alkaline Phosphatase Troponin I High Sens 4 B-Natriuretic Peptide Total Protein Albumin Globulin Lipase Radiography Diagnostic Testing: Clinical Impression(s) from Imaging Studies Chest X-Ray 11/30/22 16:20 IMPRESSION: Normal x-ray examination of the chest. Electronically Signed: Roger Cruz MD at 16:35 EDT , Discharge Plan Triage Chief Complaint: Syncope ED Provider: Carlos Callejas Dx/Rx/DC Orders Primary Care Provider: Ramone Carrera What to do if you have Problems For any increased pain, shortness of breath, bleeding, nausea or vomiting, chestpain, or any unexpected problems, contact your Primary Care Provider. Call [facility] ([phone]) or report to the closest Emergency Room. Call 911 if necessary. 11/30/221946 <Electronically signed by Carlso Callejas DO> Cosigner Signature (if applicable): CC: Dr. Ramone Carrera DO ~ Signed [facility] Work Phone: Consult note Author Dr. Leo [facility] December 01, 2022 4:10pm Note Date/Time December 01, 2022 4:1 0pm [facility] Medical Records Department [address] [place] [address] Consultation - Cardiology 12/01/22 1605 MR#: [id number] Acct: [id number] Name: EFE ARENAS Rep #:[id number] : 1960 62 From: Roland funez MD PCP: Dr. Ramone Carrera DO Status:ADM ROBERT Location: [place] [address] Assessment & Plan Assessment/Plan (1) Syncope: PLAN: Appears to be vasovagal. 2D echo was done today and was reviewed. Discussed treatment options, precautions to be taken etc. with the patient. His syncopal episodes appear to be precipitated by his dyspepsia. Patient did have prodromal symptoms prior to the episodes. He was advised to lie down flat if hehas those prodromal symptoms. He was advised to get in touch with our office orcome to the emergency room if he has recurrence of his symptoms. At this time Ifeel it is reasonable for the patient to be discharged home with an event monitor if possible. He needs to follow-up with cardiology service as an outpatient. Stress test could be considered as an outpatient. HPI Consult Data Date of Consult: 12/01/22 HPI Narrative Reason for Consultation: syncope HPI Narrative: EFE ARENAS, is a 62 M who presents with several episodes of syncope that occurred yesterday. Patient has history of vasovagal syncope that was diagnosedabout 20 years back. He had a positive tilt table test where he had significantsinus pause during the past around that time. He has been on metoprolol since then. He has not had any syncopal episodes for over 18 years. Yesterday he hadsome food that caused an upset stomach and subsequently he had about 3 episodes of syncope prior to coming to the hospital. When he was walking to the ER he had an episode of syncope and then after he was hooked up to the monitor he had an episode which revealed long sinus pause. Patient was having nausea around this time. He was given Zofran and his nausea and upset stomach resolved. He has not had any further episodes of bradycardia or sinus pauses overnight. He has remained asymptomatic overnight. His syncopal episodes this time felt like his prior vasovagal syncope. He denies any anginal symptoms. He exercises regularly at [facility] ?. Review of systems: All systems reviewed. All else is negative except that in HPI [facility] Medical History (Updated 12/01/22 @ 12:[address] Ramone Martinez DO) Back pain GERD (gastroesophageal reflux disease) Migraine Syncope and collapse Home Medications glucosamine HVf-ihw-[id number] 500 mg-167 mg-400 mg tablet 1 tab PO DAILY 02/16/19 [History Last Taken Unknown] metoprolol tartrate 25 mg tablet 25 mg PO DAILY HTN 11/30/22 [History Last Taken Unknown] Allergy/AdvReac Type Severity Reaction Status Date / Time adhesive tape Allergy Mild blistering Verified 11/30/22 15:33 Iodinated Contrast Media AdvReac Mild GI upset Verified 11/30/22 15:33 [Iodinated Contrast- Oral and IV Dye] Family History Father Heart disease Myocardial infarction Mother Hypertension DVT (deep venous thrombosis) Surgical History History of appendectomy History of colonoscopy (~2010) Social History Smoking Status: Never smoker alcohol intake: current substance use type: does not use Physical Exam Const alert and oriented x3 HEENT normocephalic Eyes no scleral icterus Resp normal respiratory effort Cardio regular rate and regular rhythm Psych mental status grossly normal Risk Stratification Risk Stratification Applicable: No Charges/Coding Visit Charges Inpatient E&M: 24138 Init Hosp L2 Objective Data Vital Signs: Vital Signs Temp Pulse Resp BP Pulse Ox O2 Del Method 97.2 F L 82 16 136/77 H 96 Room Air 12/01/22 12:52 12/01/22 12:56 12/01/22 12:52 12/01/22 12:52 12/01/22 12:52 12/01/22 12:52 Oxygen Delivery Method Room Air Weight: 227 lb 11.8 oz Body Mass Index (BMI) 26.3 Intake & Output: Intake and Output for Last 24 Hours 11/29/22 11/30/22 12/01/22 23:59 23:59 23:59 Intake Total 1250 / 1250 240 / 240 Output Total 650 / 650 Balance 1250 / 1250 -410 / -410 Lab / Micro Data Result Diagrams: 11/30/22 15:50 11/30/22 15:50 Labs: Laboratory Results - last 24 hr 11/30/22 15:50: WBC 8.5, RBC 4.55 L, Hgb 14.6, Hct 41.5, MCV 91.2, MCH 32.1 H, MCHC 35.2, RDW Std Deviation 44.4 H, RDW Coeff of Reanna 13.3, Plt Count 247, MPV 10.3, Immature Gran % (Auto) 0.400, Neut % (Auto) 51.2, Lymph % (Auto) 32.3, Stoddard % (Auto) 11.5 H, Eos % (Auto) 3.9, Baso % (Auto) 0.7, Absolute Neuts (auto)4.3, Absolute Lymphs (auto) 2.73, Nucleated RBC % 0 11/30/22 15:50: Sodium 138, Potassium 3.6, Chloride 109 H, Carbon Dioxide 22.0, Anion Gap 7, BUN 18, Creatinine 1.14, Estim Creat Clear Calc 68.05, Est GFR (MDRD) Af Amer 84, Est GFR (MDRD) Non-Af 69, BUN/Creatinine Ratio 15.8, Glucose 119 H, Calcium 8.7, Total Bilirubin 0.80, Direct Bilirubin 0.19, AST 20, ALT 25,Alkaline Phosphatase 43 L, Troponin I High Sens 4, Total Protein 6.8, Albumin 3.6, Globulin 3.2, Lipase 27 11/30/22 15:50: B-Natriuretic Peptide 23.3 11/30/22 18:10: Troponin I High Sens 4 12/01/22 00:00: Troponin I High Sens 4 12/01/22 07:20: Phosphorus 3.0, Magnesium 2.2, TSH 1.28 Cardiology Labs/Tests 11/30/22 15:50: WBC 8.5, RBC 4.55 L, Hgb 14.6, Hct 41.5, MCV 91.2, MCH 32.1 H, MCHC 35.2, Plt Count 247, MPV 10.3, Immature Gran % (Auto) 0.400, Neut % (Auto) 51.2, Lymph % (Auto) 32.3, Stoddard % (Auto) 11.5 H, Eos % (Auto) 3.9, Baso % (Auto)0.7, Absolute Neuts (auto) 4.3, Nucleated RBC % 0 11/30/22 15:50: Sodium 138, Potassium 3.6, Chloride 109 H, Carbon Dioxide 22.0, Anion Gap 7, BUN 18, Creatinine 1.14, Est GFR (MDRD) Af Amer 84, Est GFR (MDRD) Non-Af 69, BUN/Creatinine Ratio 15.8, Glucose 119 H, Calcium 8.7, Total Bilirubin 0.80, Direct Bilirubin 0.19 11/30/22 15:50: B-Natriuretic Peptide 23.3 12/01/22 07:20: Phosphorus 3.0, Magnesium 2.2 Rhythm: EKG: ECHO: Stress Test: Cardiac Cath: PCI: CT Surgery: Holter monitor: EPS: PPM: CXR: Chest CT Scan: Radiography Diagnostic Testing: Radiology Impression Chest X-Ray 11/30/22 16:20 IMPRESSION: Normal x-ray examination of the chest. Electronically Signed: Roger Cruz MD at 16:35 EDT , Echocardiogram 11/30/22 19:51 Interpretation Summary The estimated ejection fraction is 60 %. Moderate (2+) mitral valve insufficiency. Ordering Physician: Blanca Alves Referring Physician: Ramone Carrera Performed By: Colleen Monroe RCS 12/01/22 1610 <Electronically signed by Roland Leo MD> Cosigner Signature (if applicable): CC: Dr. Blanca Alves DO; Dr. Ramone Carrera DO; Dr. Roland Leo MD~ Signed [facility] Work Phone: Evaluation note* Diagnosis Onset Date Resolution Status Syncope acute [facility] Work Phone: Evaluation note* Diagnosis Onset Date Resolution Status Syncope resolved Syncope and collapse acute [facility] Work Phone: Evaluation note* Diagnosis Onset Date Resolution Status Admit Date Essential hypertension acute 2024 10:11am Syncope and collapse acute December 15, 2024 10:11am [facility] Work Phone: History and physical note Author Dr. Alves [facility] November 30, 2022 7:23pm Note Date/Time November 30, 2022 6:5 6pm [facility] Medical Records Department [address] [place] [address] H&P Exam - Hospitalist 11/30/22 1855 MR#: [id number] Acct: [id number] Name: EFE ARENAS Rep #:[id number] : 1960 62 From: Blanca Alves DO PCP: Dr. Ramone Carrera DO Status:ADM ROBERT Location: [place] [address] HPI - General General Date of Admission: 11/30/22 Date of Service: 11/30/22 Chief Complaint: Syncope HPI Narrative EFE ARENAS, is a 62 M who presented with recurrent syncopal episodes today. Patient has a documented history of vasovagal syncope that was diagnosedabout [address] [facility] with a significant positive tilt table test. Patient states he has not had an episode in 25 years and has prodromal symptoms that allow him to compensate for these episodes. Today he ate lunch at [employer] [facility] and developed some dyspepsia following. Since that point he has had 6 episodes of syncope with the longest episode lasting approximately 2 minutes per his . He had about 30 seconds of confusion postsyncopal episode with each event. His last event here demonstrated asystole with a long pause on telemetry with return of sinus rhythm fairly quickly. At the time of my evaluation patient feels almost back to his baseline only complaining of some mild discomfort in the epigastric area. He was fine up until his first syncopal episode today which happened in the car and now feels fine again. He states he has had dyspepsia previously and had not had syncopal episode so he does not feel that there is a correlation between his dyspepsia and his syncopal episodes at this time. Vital signs at presentation demonstrated temperature of 97, heart rates 83, blood pressure 130/78, respiratory rate 18, oxygen saturation 98% on room air. CBC is unremarkable. Differential does show a monocytosis. Chemistry panel is unremarkable. Nonfasting glucose was 119. Liver functions are normal. Initialtroponin was 4 and delta troponin was 4. BNP is 23.3. Lipase was 27. Chest x-ray is unremarkable. EKG shows normal sinus rhythm with normal intervals and noST-T wave changes concerning for acute ischemia. [facility] Medical History Back pain GERD (gastroesophageal reflux disease) HTN (hypertension) Migraine Syncope and collapse Home Medications glucosamine BKe-tyi-eeotuqlwzam 500 mg-167 mg-400 mg tablet 1 tab PO DAILY 02/16/19 [History Last Taken Unknown] metoprolol tartrate 25 mg tablet 25 mg PO DAILY HTN 11/30/22 [History Last Taken Unknown] Allergy/AdvReac Type Severity Reaction Status Date / Time adhesive tape Allergy Mild blistering Verified 11/30/22 15:33 Iodinated Contrast Media AdvReac Mild GI upset Verified 11/30/22 15:33 [Iodinated Contrast- Oral and IV Dye] Family History Father Heart disease Myocardial infarction Mother Hypertension DVT (deep venous thrombosis) Surgical History History of appendectomy History of colonoscopy (~2010) Social History Smoking Status: Never smoker alcohol intake: current substance use type: does not use ROS Constitutional Constitutional: Denies anorexia, change in weight, chills, fatigue, fever(s), malaise, night sweats, weakness or other Eyes Eyes: Denies blurry vision, change in eye color, change in vision, discharge from eye(s), double vision, erythema, eye pain, loss of vision or other ENT HEENT: Denies abnormal hearing, dysphagia, ear pain, epistaxis, headache(s), hearing loss, nasal congestion, nasal discharge, post nasal drip, sinus pressure, sore throat or other Cardiovascular Cardiovascular: Reports syncope; Denies chest pain, claudication, dyspnea on exertion, edema, lightheadedness, orthopnea, palpitations, paroxysmal nocturnal dyspnea, rapid heart rate or other Respiratory/Chest Respiratory/Chest: Denies cough, dyspnea, excessive phlegm production, hemoptysis, productive cough, shortness of breath at rest, shortness of breath with exertion, wheezing or other Gastrointestinal Gastrointestinal: Reports dyspepsia and vomiting; Denies abdominal pain, coffee ground emesis, constipation, diarrhea, hematemesis, hematochezia, loose stools, melena, nausea or other Genitourinary Genitourinary: Denies burning urination, difficulty urinating, dysuria, hematuria, nocturia, urinary frequency, urinary hesitancy, urinary incontinence,urinary urgency or other Musculoskeletal Musculoskeletal: Denies arthralgias, back pain, joint pain, joint stiffness, joint swelling, myalgias, neck pain or other Neurologic Neurologic: Reports syncope; Denies abnormal gait, abnormal speech, confusion, disequilibrium, dizziness, focal weakness, headache(s), numbness, paresthesias, seizure-like activity, seizures, tingling, tremor(s) or other Psychiatric Psychiatric: Denies anxiety, depression, homicidal ideation, suicidal ideation or other Endocrine Endocrinology: Denies change in body appearance, cold intolerance, excessive sweating, heat intolerance, polydipsia, polyuria or other Hematologic/Lymphatic Hematologic/Lymphatic: Denies anemia, easy bleeding, easy bruising, lymphadenopathy or other Allergic/Immunologic Allergic/Immunologic: Denies rhinitis, hives, eczemia, asthma or other Vital Signs Vital Signs Vital Signs: 11/30/22 15:29 11/30/22 16:03 11/30/22 16:18 Temperature 97 F L Temperature Source Temporal Pulse Rate 83 Respiratory Rate 18 Respiratory Effort Normal Non-Labored Respiratory Pattern Normal Blood Pressure 130/78 H Blood Pressure Mean 95 Pulse Ox 98 Oxygen Delivery Method Room Air Room Air 11/30/22 17:00 11/30/22 18:00 Temperature Temperature Source Pulse Rate 77 69 Respiratory Rate 13 20 H Respiratory Effort Respiratory Pattern Blood Pressure 146/69 H 145/75 H Blood Pressure Mean 94 98 Pulse Ox 93 97 Oxygen Delivery Method Room Air Room Air Weight Weight: 103 kg Body Mass Index (BMI) 33.5 Physical Exam Const alert, oriented x3, no apparent distress, average body habitus, healthy appearing and well nourished Constitutional Narrative: Upper middle-aged white male sitting up in bed, at bedside, patient appearscomfortable and nontoxic, states he is hungry and asking for something to eat General Appearance: cooperative HEENT normocephalic, head/scalp atraumatic, hearing grossly normal bilaterally and moist oral mucous membranes HEENT Narrative: Mallampati 2, no thrush, dentition is good for age Eyes PERRL, EOMs intact bilaterally and conjunctivae normal Eyes Narrative: No scleral icterus Neck no lymphadenopathy, supple, no JVD and no carotid bruits Neck Narrative: Trachea midline, no thyroid enlargement Resp normal respiratory effort, no retractions, no use of accessory muscles and clearto auscultation bilaterally Auscultation: Negative for rales, rhonchi or wheezes Cardio regular rate, regular rhythm, S1 normal heart sound, S2 normal heart sound, no murmurs, no rub, no gallops and no clicks GI normal to inspection, nondistended, normoactive bowel sounds, soft to palpation and non-tender Extremity no clubbing, cyanosis or edema Extremity Narrative: 2+ pedal pulses, 2+ radial pulses Skin no rashes or lesions noted, no wounds, skin turgor normal, no jaundice, no petechiae and no mottling Neuro oriented x3, CN's II-XII intact bilaterally, moves all extremities and no focal motor deficits Sensorium / Orientation: awake, alert, oriented to person, oriented to place andoriented to time Speech: speech normal Motor Exam: strength 5/5 throughout Psych affect normal Psych Narrative: Very pleasant, appropriately interactive Results Lab / Micro Data Result Diagrams: 11/30/22 15:50 11/30/22 15:50 Labs: Laboratory Results - last 24 hr 11/30/22 15:50: WBC 8.5, RBC 4.55 L, Hgb 14.6, Hct 41.5, MCV 91.2, MCH 32.1 H, MCHC 35.2, RDW Std Deviation 44.4 H, RDW Coeff of Reanna 13.3, Plt Count 247, MPV 10.3, Immature Gran % (Auto) 0.400, Neut % (Auto) 51.2, Lymph % (Auto) 32.3, Stoddard % (Auto) 11.5 H, Eos % (Auto) 3.9, Baso % (Auto) 0.7, Absolute Neuts (auto)4.3, Absolute Lymphs (auto) 2.73, Nucleated RBC % 0 11/30/22 15:50: Sodium 138, Potassium 3.6, Chloride 109 H, Carbon Dioxide 22.0, Anion Gap 7, BUN 18, Creatinine 1.14, Estim Creat Clear Calc 68.05, Est GFR (MDRD) Af Amer 84, Est GFR (MDRD) Non-Af 69, BUN/Creatinine Ratio 15.8, Glucose 119 H, Calcium 8.7, Total Bilirubin 0.80, Direct Bilirubin 0.19, AST 20, ALT 25,Alkaline Phosphatase 43 L, Troponin I High Sens 4, Total Protein 6.8, Albumin 3.6, Globulin 3.2, Lipase 27 11/30/22 15:50: B-Natriuretic Peptide 23.3 Radiology Impression Chest X-Ray 11/30/22 16:20 IMPRESSION: Normal x-ray examination of the chest. Electronically Signed: Roger Cruz MD at 16:35 EDT , Assessment & Plan Assessment/Plan (1) Syncope: PLAN: Plan Syncope -Patient with 6 episodes of syncope today -Has history of vasovagal syncope diagnosed 25 years ago but has not had an event that has caused a syncopal episode in 25 years since he was diagnosed -He does have prodrome -Monitor on telemetry -Cycle cardiac enzymes -Check stress test -Check echocardiogram -Check carotid Dopplers -Consult cardiology -If work-up here is negative will likely need event monitor at discharge Dyspepsia -Protonix 40 mg daily Hypertension -Continue home metoprolol History of vasovagal syncope -Remote diagnosis 25 years ago at [facility] [place] -Had a markedly positive tilt table at that time but has prodrome and can usually lilly syncope with maneuvers he was instructed to utilize Osteoporosis -Restart glucosamine/chondroitin after discharge DVT prophylaxis -Lovenox CODE STATUS -Full code Charges/Coding Visit Charges Inpatient E&M: 90277 Init Hosp L2 11/30/221922 <Electronically signed by Blanca Alves DO> Cosigner Signature (if applicable): CC: Dr. Blanca Alves DO; Dr. Ramone Carrera, DO~ Signed [facility] Work Phone: Reason for referral (narrative)No reason for referral information availableOcala [facility] Services Work Phone: Chief Complaint and Reason for Visit Chief Complaint RECURRENT SYNCOPE Reason for Visit Syncope Chief Complaint RECURRENT SYNCOPE RECURRENT SYNCOPE RECURRENT SYNCOPE Reason for Visit Syncope Chief Complaint RECURRENT SYNCOPE RECURRENT SYNCOPE RECURRENT SYNCOPE RECURRENT SYNCOPE SYNCOPE S/P [facility] Reason for Visit Syncope Syncope and collapse Chief Complaint RECURRENT SYNCOPE RECURRENT SYNCOPE RECURRENT SYNCOPE RECURRENT SYNCOPE SYNCOPE S/P [facility] SYNCOPE Syncope SYNCOPE/STAT LABS Reason for Visit Syncope Syncope and collapse Chief Complaint RECURRENT SYNCOPE RECURRENT SYNCOPE RECURRENT SYNCOPE RECURRENT SYNCOPE SYNCOPE S/P [facility] SYNCOPE Syncope SYNCOPE/STAT LABS REMOVAL OF LOOP RECORDER Reason for Visit Syncope Syncope and collapse Chief Complaint RECURRENT SYNCOPE RECURRENT SYNCOPE RECURRENT SYNCOPE RECURRENT SYNCOPE SYNCOPE 30 DAY MONITOR S/P [facility] SYNCOPE Syncope SYNCOPE/STAT LABS REMOVAL OF LOOP RECORDER SYNCOPE SYNCOPE Reason for Visit Syncope Syncope and collapse Chief Complaint Admit Date Pacer Check Remote September 02, 2024 2 :47am Pacer Check Remote December 02, 2024 2:3 4am 1 Y FU December 15, 2024 10:11 am Reason for Visit Admit Date Essential hypertension December 15, 2024 10 :11am Syncope and collapse December 15, 2024 10:1 1am Chief Complaint Admit Date Pacer Check Remote December 02, 2024 2:3 4am 1 Y FU December 15, 2024 10:11 am E-ORDER January 07, 2025 4:26p m Family History No Family History Records Found Relationship Condition Age at Onset Recorded Date/T elsy father Cardiac disease Unknown Myocardial infarction Unknown mother Hypertension Unknown Deep vein thrombosis (DVT) Unknown Advance Directives No Advanced Directives Records Found Advance Directive Response Recorded Date/ Time Living Will No November 30, 2022 4:03pm Power of Buyer Broker No November 30 4:03pm Advance Directive Response Recorded Date/ Time Name of Medical Power of Buyer Broker Minnavincent beaulieu November 30, 2022 8:10pm Living Will Yes November 30, 2022 8:10pm Power of Buyer Broker Yes November 30 8:10pm Advance Directive Response Recorded Date/ Time Name of Medical Power of Buyer Broker Minna beaulieu November 30, 2022 8:10pm Advance Directives on File No January 28, 2023 7:19am Name of Medical Power of Buyer Broker Minna (spouse ) January 28, 2023 7:19am Advance Directives Yes January 28 7:19am Living Will Yes January 28, 2023 7:19am Power of Buyer Broker Yes January 28 7:19am Advance Directive Response Recorded Date/ Time Name of Medical Power of Buyer Broker Minna Ellis e November 30, 2022 8:10pm Advance Directives on File No January 28, 2023 7:19am Name of Medical Power of Buyer Broker Minna (spouse ) January 28, 2023 7:19am Advance Directives on File Yes January 30, 2023 11:14am Name of Medical Power of Buyer Broker Irma Ellis e- January 30, 2023 11:14am Advance Directives Yes January 30 11:14am Living Will Yes January 30, 2023 11:14am Power of Buyer Broker Yes January 30 11:14am Advance Directive Response Recorded Date/ Time Name of Medical Power of Buyer Broker Minna Ellis e November 30, 2022 8:10pm Advance Directives on File No January 28, 2023 7:19am Name of Medical Power of Buyer Broker Minna (spouse ) January 28, 2023 7:19am Advance Directives on File Yes January 30, 2023 11:14am Name of Medical Power of Buyer Broker Irma Aldridgel e- January 30, 2023 11:14am Advance Directives on File Yes March 04, 2023 9:03am Name of Medical Power of Buyer Broker Minna () March 04, 2023 9:03am Advance Directives Yes March 04 9:03am Living Will Yes March 04, 2023 9:03am Power of Buyer Broker Yes March 04 9:03am Advance Directive Response Recorded Date/ Time Living Will Yes March 04, 2023 9:03am Do you have a Healthcare Power of Buyer Broker? Yes March 04, 2023 9:03am Advance Directives Yes March 04 9:03am Summary Purpose Additional Source Comments Care Teams (unrecognized sec tion and content) Team Status: Active Member Role Status Dates Dr. Simone Guallpa MD Family Provider Active Dr. Ramone Carrera , DO Primary Care Provider Active Team Status: Active Member Role Status Dates Dr. Carlos Callejas , DO Emergency Provider Active Dr. Ramoen Carrera , DO Primary Care Provider Active Dr. Blanca Alves , DO Admit Provider, Attending Provide r Active Team Status: Active Member Role Status Dates Dr. Carlos Callejas , DO Emergency Provider Active Dr. Ramone Carrera , DO Primary Care Provider Active Dr. Blanca Alves , DO Admit Provider, Att ending Provider, Other Provider Active Team Status: Active Member Role Status Dates Dr. Carlos Callejas , DO Emergency Provider Active Dr. Ramone Carrera , DO Primary Care Provider Active Dr. Blanca Alves , DO Admit Provider, Other Provider Ac tive Dr. Roland Leo MD Other Provider Active Dr. Ramone Martinez , DO Attending Provider, Other Pro vider Active Team Status: Active Member Role Status Dates Dr. Ramone Carrera , DO Primary Care Provider Active Dr. Roland Leo MD Attending Provider Activ e Team Status: Inactive Member Role Status Dates Dr. Carlos Callejas , DO Emergency Provider Active Dr. Ramone Carrera , DO Primary Care Provider Active Dr. Blanca Alves , DO Admit Provider, Other Provider Ac tive Dr. Roland Leo MD Other Provider Active Dr. Ramone Martinez , DO Attending Provider Active Team Status: Inactive Member Role Status Dates Dr. Ramone Carrera , DO Primary Care Provider, Referrin g Provider Active Rachel Sahni PA, PA Attending Provider Active Team Status: Inactive Member Role Status Dates Dr. Carlos Callejas , DO Emergency Provider Active Dr. Ramone Carrera , DO Primary Care Provider Active Dr. Blanca Alves , DO Admit Provider, Other Provider Ac tive Dr. Roland Leo MD Other Provider Active Dr. Ramone Martinez , DO Attending Provider, Referring Provider Active Team Status: Active Member Role Status Dates Dr. Ramone Carrera , DO Primary Care Provider Active Dr. Blanca Alves , DO Attending Provider Active Team Status: Inactive Member Role Status Dates Dr. Ramone Carrera , DO Primary Care Prov ider, Attending Provider, Referring Provider Active Team Status: Active Member Role Status Dates Dr. Simone Guallpa MD Family Provider Active Sasha Dean , MATERIAL EXPEDITER-C Primary Care Provider Active Team Status: Active Member Role Status Dates Rachel Sahni PA, PA Referring Provider, Other Provider Active Sashadelaney Moran , MATERIAL EXPEDITER-C Primary Care Provider Active Dr. Elias Grimm MD Attending Provider Active Team Status: Inactive Member Role Status Dates Rachel Sahni PA, PA Attending Provider, Referr ing Provider Active Sasha Dean , MATERIAL EXPEDITER-C Primary Care Provider Active Team Status: Inactive Member Role Status Dates Sasha Moran , MATERIAL EXPEDITER-C Primary Care Provider Active Dr. Elias Grimm MD Attending Provider, Referring Pro vider Active Team Status: Active Member Role Status Dates Sasha Moran , MATERIAL EXPEDITER-C Primary Care Provider Active Dr. Elias Grimm MD Attending Provider, Referring Provider, Other Provider Active Team Status: Active Member Role Status Dates Dr. Ramone Carrera DO Primary Care Provider Active Dr. Elias Grimm MD Attending Provider, Referring Pro vider Active Team Status: Inactive Member Role Status Dates Sasha Dean , MATERIAL EXPEDITER-C Primary Care Provider Active Start: September 02, 2024 End: September 02, 2024 Dr. Elias Grimm MD Attending Provider Active S tart: September 02, 2024 End: September 02, 2024 Team Status: Inactive Member Role Status Dates Sasha Dean , MATERIAL EXPEDITER-C Primary Care Provider Active Start: December 02, 2024 End: December 02, 2024 Dr. Elias Grimm MD Attending Provider Active S tart: December 02, 2024 End: December 02, 2024 Team Status: Inactive Member Role Status Dates Sasha Dean , MATERIAL EXPEDITER-C Primary Care Provider Active Start: December 15, 2024 End: December 15, 2024 Sasha Dean , MATERIAL EXPEDITER-C Referring Provider Active St art: December 15, 2024 End: December 15, 2024 Dr. Elias Grimm MD Attending Provider Active S tart: December 15, 2024 End: December 15, 2024 Team Status: Active Member Role Status Dates Sasha Dean , MATERIAL EXPEDITER-C Primary Care Provider Active Team Status: Inactive Member Role Status Dates Sasha Dean , MATERIAL EXPEDITER-C Primary Care Provider Active Start: January 07, 2025 End: January 07, 2025 Dr. Elias Grimm MD Attending Provider Active S tart: January 07, 2025 End: January 07, 2025 Dr. Elias Grimm MD Referring Provider Active S tart: January 07, 2025 End: January 07, 2025 Goals (unrecognized section and content) Goals may be documented in a n alternate sectionGoals may be documented in an alternate sectionGoals may be documented in an alternate section (unrecognized sect ion and content) No Status Records Found INFORMATION SOURCE (unrecogn ized section and content) DATE CREATED AUTHOR 01/16/2025 [facility] FOR RECORDS PERTAINING TO PATIENTS WHO ARE OR HAVE BEEN ENROLLED IN A CHEMICAL DEPENDENCY/SUBSTANCEABUSE PROGRAM, SOME INFORMATION MAY BE OMITTED. This clinical summary was aggregated from multiple sources. Caution should be exercised in using it in the provision of clinical care. This summary normalizes information from multiple sources, and as a consequence, information in this document may materially change the coding, format and clinical context of patient data. In addition, data may be omitted in some cases. CLINICAL DECISIONS SHOULD BE BASED ON THE PRIMARY CLINICAL RECORDS. [email or web address] provides no warranty or guarantee of the accuracy or completeness of information in this document.
--- NOTE | 2025-03-15 09:45 | CL.IE_ITS ---
Patient: SUNITA CERDA Study Date: 01/19/2025 Performing: Elias Grimm MD : [id number] Age: 64 Gender: male PROCEDURES PERFORMED LP02-([id number])REMOVAL OF LOOP RECORDER INDICATIONS end of battery life PROCEDURE DETAILS The patient was brought to the Catheterization Lab in the postabsorptive nonsedated state. Informed consent was obtained prior to the procedure. Local anesthetic was given subcutaneously to the left upper chest area with Lidocaine 2%. Incision was made to the left upper chest. ICM Loop Recorder was removed. Skin closure was completed with 4-0 Vicryl. The patient tolerated the procedure well. Estimated Blood Loss: 3 ml's IMPLANTED / EX-PLANTED DEVICES DEVICE PARAMETERS CONCLUSIONS / RECOMMENDATIONS Device Conclusions: Successful removal of a patient deactivated loop recorder. Device Recommendations: Follow up with Primary Care Physician PROCEDURE MEDICATIONS Versed 1 mg IV Fentanyl 50 mcg IV Ancef 2 Gm IV @ 01/19/2025 07:38:24 Signed By Elias Grimm MD On 01/26/2025 15:17:29 Elias Grimm MD
== END 2025-01-19 09:10 | disposition home or self-care (01) ==
PROVIDERS: PCP Nurse Practitioner Family; Referring Provider Internal Medicine Cardiovascular Disease; Visit Provider Internal Medicine Cardiovascular Disease
DX: Z45.09 Encounter for adjustment and management of other cardiac device (principal); R42 Dizziness and giddiness; I10 Essential (primary) hypertension; I34.0 Nonrheumatic mitral (valve) insufficiency; Z79.899 Other long term (current) drug therapy
CPT/HCPCS: 33286; 99152; 99153

== ENCOUNTER → 2025-05-05 | Outpatient (CLI) | payer OTHER, SELFPAY ==
[2025-05-05 10:47] LABS: Hematocrit 44.5 % (40-54); Hemoglobin 15.5 g/dL (13.0-16.5); Immature Granulocytes Count 0.020 X10^3/uL (0.0-0.0); Mean Corp Hgb Conc 34.8 g/dL (32-36); Mean Corpuscular Volume 91.8 fL (80-94); Mean Platelet Vol. 9.7 fl (6.2-12.0); NRBC Flagged by Analyzer 0 % (0-5); Platelet Count 229 K/mm3 (150-450); RBC Distribution Width CV 12.6 % (11.6-14.6); RBC Distribution Width SD 42.5 fl (35.1-43.9); Red Blood Count 4.85 M/mm3 (4.6-6.2); White Blood Count 7.2 K/mm3 (4.4-11.0)
[2025-05-05 11:05] LABS: AST(SGOT) 15 U/L (<=37); Alanine Aminotransfer ALT/SGPT 14 U/L (<=46); Albumin, Serum 4.2 g/dL (3.4-4.8); Alkaline Phosphatase 42 U/L (40-129); Anion Gap 9 (5-15); BUN 16 mg/dL (4-19); BUN/Creat Ratio 13.4 RATIO (10-20); Calcium,Total 9.3 mg/dL (7.6-11.0); Carbon Dioxide 25.7 mmol/L (21.0-32.0); Chloride 104 mmol/L (98-108); Cholesterol 163 mg/dL (<=200); Globulin 2.7 g/dL (2.2-4.2); Glucose 117 mg/dL (70-99); Low Density Lipoprotein Calc. 108 mg/dL; PSA,Total - Annual Screen 1.65 ng/mL (0.02-4.00); Potassium 4.8 mmol/L (3.3-5.1); Triglycerides 83 mg/dL; Very Low Density Lipoprotein 17 mg/dL (5-40); cholesterol:hdl ratio screen 4.24
== END | disposition home or self-care (01) ==
LOC: MTLAB 08:54
PROVIDERS: PCP Nurse Practitioner Family; Referring Provider Nurse Practitioner Family; Visit Provider Nurse Practitioner Family
DX: Z00.01 Encounter for general adult medical examination with abnormal findings (principal); R73.01 Impaired fasting glucose; Z12.5 Encounter for screening for malignant neoplasm of prostate
CPT/HCPCS: 36415; 80053; 80061; 83036; 84153; 85025; G0103